=== PATIENT | female | born 1955 | race American Indian/Alaskan Native ===

== ENCOUNTER 2016-07-28 16:08 | Emergency (ER) | payer SELFPAY ==
[2016-07-28 16:44] VITALS: BP 158/97
[2016-07-28] MEDS ORDERED: TYLENOL PO ONE (21:31)
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
--- NOTE | 2016-07-28 23:19 | XRay Report ---
FINAL REPORT EXAM: XR SPINE LUMBOSACRAL 2-3V HISTORY: pain TECHNIQUE: AP, lateral and coned-down views of lumbar spine. PRIORS: None. FINDINGS: Marked disc space narrowing, endplate sclerosis and spurring in the L5-S1 level. Similar, less severe degenerative change in L1-L4 levels, with some sparing in the L4-5 level. Diffuse facet arthrosis throughout majority of lumbar spine. Very mild anterolisthesis in L4-5 level. No loss of height or other gross malalignment of lumbar vertebral bodies. No obvious osseous destruction. IMPRESSION: 1. No acute osseous abnormality. 2. Diffuse degenerative changes.
== END 2016-07-29 01:39 | disposition home or self-care (01) ==
LOC: ED 16:08
DX: S13.4XXA Sprain of ligaments of cervical spine, initial encounter (principal); S39.012A Strain of muscle, fascia and tendon of lower back, initial encounter; I10 Essential (primary) hypertension; E11.9 Type 2 diabetes mellitus without complications; Z79.4 Long term (current) use of insulin; V43.52XA Car driver injured in collision with other type car in traffic accident, initial encounter; Y93.89 Activity, other specified; Y92.89 Other specified places as the place of occurrence of the external cause; Y99.8 Other external cause status
CPT/HCPCS: 72100; 99283

== ENCOUNTER 2016-11-22 21:37 | Inpatient (IN) | payer OTHER ==
[2016-11-22] MEDS ORDERED: NACL 0.9% 1000 ML 1,000 ML ONE (22:12)
[2016-11-22] MEDS ORDERED: BABY ASPIRIN PO ONE (22:15)
--- NOTE | 2016-11-22 22:21 | Emergency Department Report ---
ED Chest Pain HPI - General Chief Complaint: Arrhythmia/Palpitations Stated Complaint: CP Time Seen by Provider: 11/22/16 22:15 Source: patient - History of Present Illness Initial Comments: 61 years old female history of SVT, diabetes, high blood pressure and hyperlipidemia presented today with palpitation started 192. Patient stated that her symptoms started all of a sudden while she was going to the bathroom associated with shortness of breath left-sided chest pain that radiated to the neck. Last similar condition was one year ago relieved with adenosine. MD Complaint: chest pain - Related Data Home Medications Medication Instructions Recorded Confirmed Last Taken Ascorbic Acid [Vitamin C] 1,000 mg PO QDAY 05/13/13 03/19/16 05/12/13 unsure dose but OTC Ferrous Sulfate [Iron Supplement 1 mg PO QDAY 05/13/13 03/19/16 05/12/13 325 Mg tab] Lisinopril [Zestril TAB] 40 mg PO QDAY 05/13/13 03/19/16 05/12/13 Multivitamin Tab W-MINERAL 1 tab PO QDAY 05/13/13 03/19/16 05/12/13 [Multiple Vitamin/Mineral (Theragran M)] Lovastatin [Altoprev] 20 mg PO QPM 03/19/16 03/19/16 Unknown amLODIPine [Norvasc] 5 mg PO DAILY 03/19/16 03/19/16 Unknown metFORMIN [Glucophage] 1,000 mg PO BID 03/19/16 03/19/16 Unknown Previous Rx's Medication Instructions Recorded Last Taken Type Insulin Aspart Prot/Aspart(Nf) 30 units SUB-Q BIDDIAB #1 units 04/24/14 Unknown Rx [NovoLOG Mix 70/30 VIAL] Metoprolol [Lopressor TAB] 25 mg PO BID #60 tablet 04/24/14 Unknown Rx hydrALAZINE [Apresoline TAB] 25 mg PO Q8HR #90 tablet 04/24/14 Unknown Rx Acetaminophen [Acetaminophen TAB] 650 mg PO Q6HR PRN 5 Days 07/28/16 Unknown Rx Cyclobenzaprine HCl [Flexeril 5 MG 5 mg PO TID 5 Days 07/28/16 Unknown Rx TAB] Allergies Allergy/AdvReac Type Severity Reaction Status Date / Time naproxen [From Naprosyn] Allergy Hives Verified 08/26/17 22:40 Heart Score - HEART Score History: Moderately suspicious EKG: Non-specific Age: 45-65 Risk factors: > 3 risk factors or hx of atherosclerotic disease Troponin: < normal limit HEART Score: 5 - Critical Actions Critical Actions: 4-6 pts:12-16.6% risk of adverse cardiac event. Should be admitted ED Review of Systems ROS: Stated complaint: CP Other details as noted in HPI Comment: All other systems reviewed and negative Constitutional: denies: chills, fever Respiratory: shortness of breath, SOB at rest. denies: cough, orthopnea, SOB with exertion, stridor, wheezing, other Cardiovascular: chest pain, palpitations, dyspnea on exertion Gastrointestinal: denies: nausea, vomiting, diarrhea, constipation, hematemesis , melena, hematochezia Neurological: denies: headache, weakness, numbness ED Past Medical Hx - Past Medical History Hx Hypertension: Yes Hx CVA: No Hx Heart Attack/AMI: No Hx Congestive Heart Failure: No Hx Diabetes: Yes Hx Deep Vein Thrombosis: No Hx Pulmonary Embolism: No Hx GERD: No Hx Liver Disease: No Hx Renal Disease: No Hx Sickle Cell Disease: No Hx Arthritis: No Hx Headaches / Migraines: No Hx Seizures: No Hx Kidney Stones: No Hx Psychiatric Treatment: No Hx Asthma: No Hx COPD: No Hx Tuberculosis: No Hx Dementia: No - Surgical History Additional Surgical History: tubal ligation and foot sugery - Social History Smoking Status: Never Smoker Substance Use Type: None - Medications Home Medications: Home Medications Medication Instructions Recorded Confirmed Last Taken Type Ascorbic Acid [Vitamin C] 1,000 mg PO QDAY 05/13/13 03/19/16 05/12/13 History unsure dose but OTC Ferrous Sulfate [Iron Supplement 1 mg PO QDAY 05/13/13 03/19/16 05/12/13 History 325 Mg tab] Lisinopril [Zestril TAB] 40 mg PO QDAY 05/13/13 03/19/16 05/12/13 History Multivitamin Tab W-MINERAL 1 tab PO QDAY 05/13/13 03/19/16 05/12/13 History [Multiple Vitamin/Mineral (Theragran M)] Insulin Aspart Prot/Aspart(Nf) 30 units SUB-Q BIDDIAB #1 units 04/24/14 Unknown Rx [NovoLOG Mix 70/30 VIAL] Metoprolol [Lopressor TAB] 25 mg PO BID #60 tablet 04/24/14 03/19/16 Unknown Rx hydrALAZINE [Apresoline TAB] 25 mg PO Q8HR #90 tablet 04/24/14 03/19/16 Unknown Rx Lovastatin [Altoprev] 20 mg PO QPM 03/19/16 03/19/16 Unknown History amLODIPine [Norvasc] 5 mg PO DAILY 03/19/16 03/19/16 Unknown History metFORMIN [Glucophage] 1,000 mg PO BID 03/19/16 03/19/16 Unknown History Acetaminophen [Acetaminophen TAB] 650 mg PO Q6HR PRN 5 Days 07/28/16 Unknown Rx Cyclobenzaprine HCl [Flexeril 5 MG 5 mg PO TID 5 Days 07/28/16 Unknown Rx TAB] ED Physical Exam - General Limitations: No Limitations General appearance: alert, in distress - Head Head exam: Present: atraumatic, normocephalic, normal inspection - Neck Neck exam: Present: normal inspection - Respiratory Respiratory exam: Present: normal lung sounds bilaterally. Absent: respiratory distress, wheezes, rales, rhonchi, stridor, chest wall tenderness, accessory muscle use, decreased breath sounds, prolonged expiratory - Cardiovascular Cardiovascular Exam: Present: tachycardia. Absent: bradycardia, irregular rhythm, systolic murmur, diastolic murmur, gallop - GI/Abdominal GI/Abdominal exam: Present: soft. Absent: tenderness, guarding, rebound, rigid , mass, bruit, pulsatile mass, hernia - Back Exam Back exam: Present: normal inspection. Absent: CVA tenderness (R), CVA tenderness (L) - Neurological Exam Neurological exam: Present: alert, oriented X3, CN II-XII intact - Skin Skin exam: Present: warm, normal color ED Course Vital Signs 11/22/16 22:40 Pulse Rate 140 H Respiratory 22 Rate Blood Pressure 153/103 O2 Sat by Pulse 99 Oximetry - Reevaluation(s) Reevaluation #1: 11/22/16 22:21 Patient received 6 mg of adenosine was no change in the rhythm, given 12 mg of adenosine,patient converted to sinus rhythm with a heart rate of 92. Reevaluation #2: 11/22/16 23:21 Presented the case to Dr. Janeen Kirk for admission, Dr. Kirk agreed to admit the patient to her service ED Medical Decision Making - Lab Data Result diagrams: 11/22/16 22:44 11/22/16 22:44 Critical Care Time: Yes Critical care time in (mins) excluding proc time.: 32 Critical care attestation.: If time is entered above; I have spent that time in minutes in the direct care of this critically ill patient, excluding procedure time. ED Disposition Clinical Impression: SVT (supraventricular tachycardia), Chest pain at rest Disposition: [id number] OP ADMIT IP TO THIS HOSP Is pt being admited?: Yes Condition: Stable Instructions: Chest Pain (ED) Referrals: PRIMARY CARE, [Primary Care Provider] - 3-5 Days
[2016-11-22 22:54] LABS: Basophils % (Auto) 0.2 % (0.0-1.8); Eosinophils % (Auto) 0.3 % (0.0-4.3); Mean Corpuscular HGB Conc 31 % (30-34); Mean Corpuscular Hemoglobin 26 pg (28-32); Mean Corpuscular Volume 85 fl (79-97); Platelet Count 201 K/mm3 (140-440); Red Blood Count 4.66 M/mm3 (3.65-5.03); Red Cell Distribution Width 16.4 % (13.2-15.2); White Blood Count 14.5 K/mm3 (4.5-11.0)
[2016-11-22 23:06] LABS: Hematocrit 39.8 % (30.3-42.9); Hemoglobin 12.2 gm/dl (10.1-14.3)
[2016-11-22] MEDS ORDERED: AdenoCARD 6 MG in NACL 0.9% 500 ML 500 ML IV ONE (23:14)
[2016-11-22 23:17] LABS: Alanine Aminotransferase 244 units/L (7-56); Albumin 3.7 g/dL (3.9-5); Alkaline Phosphatase 132 units/L (35-129); Anion Gap 22 mmol/L; BUN/Creatinine Ratio 15.71; Blood Urea Nitrogen 22 mg/dL (7-17); Calcium 8.9 mg/dL (8.4-10.2); Carbon Dioxide 19 mmol/L (22-30); Glucose 415 mg/dL (65-100); Potassium 4.9 mmol/L (3.6-5.0); Sodium 136 mmol/L (137-145); Total Protein 7.4 g/dL (6.3-8.2)
[2016-11-22] MEDS ORDERED: NACL 0.9% 1000 ML 1,000 ML IV ONE (23:30)
--- NOTE | 2016-11-22 23:44 | History and Physical Report ---
History of Present Illness Date of examination: 11/22/16 History of present illness: 61-year-old with a history of hypertension, diabetes, hyperlipidemia, SVT plus emergency room because while she was going to the bathroom she developed palpitations associated with chest pain. Also complaining of feeling dizzy. She took 2 of her 25 mg Lopressor, she stated that her symptoms seem to slow down after some time. In the emergency room, her heart rate was 140, she was given adenosine 6 and 12 with good results Review of systems Review Of Systems: Constitutional: no weight loss Ears, eyes, nose, mouth and throat: no nasal congestion, no nasal discharge, no sinus pressure, blurry vision, diplopia Neck: No neck pain or rigidity. Cardiovascular: no orthopnea Respiratory: No shortness of breath, cough Gastrointestinal: abdominal pain, hematochezia Genitourinary : no dysuria, frequency , hematuria Musculoskeletal: no muscle ache Integumentary: no rash, no pruritis Neurological: no parathesias, focal weakness Endocrine: no cold or heat intolerance, no polyuria or polydipsia Hematologic/Lymphatic: no easy bruising, no easy bleeding, no gland swelling Allergic/Immunologic: no urticaria, no angioedema. PAST MEDICAL HISTORY:hypertension, diabetes, hyperlipidemia, SVT PAST SURGICAL HISTORY: Bunionectomy FAMILY HISTORY: Hypertension SOCIAL HISTORY: Denies alcohol, tobacco, drugs Medications and Allergies Allergies Allergy/AdvReac Type Severity Reaction Status Date / Time naproxen [From Naprosyn] Allergy Hives Verified 11/22/16 22:40 Home Medications Medication Instructions Recorded Confirmed Last Taken Type Ascorbic Acid [Vitamin C] 1,000 mg PO QDAY 05/13/13 03/19/16 05/12/13 History unsure dose but OTC Ferrous Sulfate [Iron Supplement 1 mg PO QDAY 05/13/13 03/19/16 05/12/13 History 325 Mg tab] Lisinopril [Zestril TAB] 40 mg PO QDAY 05/13/13 03/19/16 05/12/13 History Multivitamin Tab W-MINERAL 1 tab PO QDAY 05/13/13 03/19/16 05/12/13 History [Multiple Vitamin/Mineral (Theragran M)] Insulin Aspart Prot/Aspart(Nf) 30 units SUB-Q BIDDIAB #1 units 04/24/14 Unknown Rx [NovoLOG Mix 70/30 VIAL] Metoprolol [Lopressor TAB] 25 mg PO BID #60 tablet 04/24/14 03/19/16 Unknown Rx hydrALAZINE [Apresoline TAB] 25 mg PO Q8HR #90 tablet 04/24/14 03/19/16 Unknown Rx Lovastatin [Altoprev] 20 mg PO QPM 03/19/16 03/19/16 Unknown History amLODIPine [Norvasc] 5 mg PO DAILY 03/19/16 03/19/16 Unknown History metFORMIN [Glucophage] 1,000 mg PO BID 03/19/16 03/19/16 Unknown History Acetaminophen [Acetaminophen TAB] 650 mg PO Q6HR PRN 5 Days 07/28/16 Unknown Rx Cyclobenzaprine HCl [Flexeril 5 MG 5 mg PO TID 5 Days 07/28/16 Unknown Rx TAB] Active Meds: Active Medications Sodium Chloride (Nacl 0.9% 1000 Ml) 1,000 mls @ 999 mls/hr IV BOLUS ONE Stop: 11/23/16 00:30 Last Admin: 11/22/16 22:10 Dose: 999 mls/hr Exam - Physical Exam Narrative exam: Gen. appearance: Patient lying in bed in no acute distress HEENT: Normocephalic/atraumatic, pupils equal round reactive to light, extra ocular movement intact, no scleral icterus, no JVD or thyromegaly or nodule, neck is supple, mucous membrane moist, no erythema or exudate Heart: S1-S2, regular rate and rhythm Lungs: Clear to auscultation bilateral breathing comfortable Abdomen: Positive bowel sounds, nontender, nondistended, no organomegaly Extremities: No edema, cyanosis, clubbing Neuro:: Oriented 3 , cranial nerves II-12 intact, speech, motor intact Skin: No rash, nodules, warm dry - Constitutional Vitals: Temp Pulse Resp BP Pulse Ox 140 H 22 153/103 99 11/22/16 22:40 11/22/16 22:40 11/22/16 22:40 11/22/16 22:40 Results - Labs CBC & Chem 7: 11/24/16 05:27 11/24/16 05:27 Labs: Abnormal lab results 11/22/16 11/22/16 Range/Units 22:44 22:44 WBC 14.5 H (4.5-11.0) K/mm3 MCH 26 L (28-32) pg RDW 16.4 H (13.2-15.2) % Lymph % (Auto) 12.2 L (13.4-35.0) % Hale # 0.9 H (0.0-0.8) K/mm3 Seg Neutrophils % 81.2 H (40.0-70.0) % Seg Neutrophils # 11.8 H (1.8-7.7) K/mm3 Sodium 136 L (137-145) mmol/L Carbon Dioxide 19 L (22-30) mmol/L BUN 22 H (7-17) mg/dL Creatinine 1.4 H (0.7-1.2) mg/dL Glucose 415 H (65-100) mg/dL AST 257 H (5-40) units/L ALT 244 H (7-56) units/L Alkaline Phosphatase 132 H (35-129) units/L Albumin 3.7 L (3.9-5) g/dL - Imaging and Cardiology EKG: image reviewed Chest x-ray: image reviewed Assessment and Plan Assessment Recurrent SVT Leukocytosis, stressed induced Hypertension Diabetes of 2 Hyperlipidemia Obesity Plan Admit to medicine Check cardiac enzymes, echo, consult cardiology Check fingersticks and initiate insulin sliding scale DVT prophylaxis, continue appropriate outpatient medications
--- NOTE | 2016-11-23 00:06 | XRay Report ---
FINAL REPORT EXAM: XR CHEST 1V AP HISTORY: Chest Pain TECHNIQUE: Single-view chest PRIORS: None. FINDINGS: Hazy opacity over the lung bases is thought to be related to overlying soft tissue.No focal consolidations are seen in the lungs.The cardiomediastinal silhouette is within normal limits for size and contour. No acute osseous abnormality is identified. IMPRESSION: 1. No definite radiographic evidence of acute cardiopulmonary disease.
[2016-11-23] MEDS ORDERED: BABY ASPIRIN ONE (00:37)
[2016-11-23] MEDS ORDERED: MILK OF MAGNESIA PO PRN (01:11)
[2016-11-23] MEDS ORDERED: TYLENOL PO PRN (01:11)
[2016-11-23] MEDS ORDERED: PROVENTIL IH PRN (01:11)
[2016-11-23] MEDS ORDERED: ZOFRAN IV PRN (01:11)
[2016-11-23] MEDS ORDERED: DULCOLAX PR PRN (01:11)
[2016-11-23] MEDS ORDERED: D50W (25GM) Syringe IV PRN (01:24)
[2016-11-23] MEDS: PERCOCET 5/325 PO PRN (03:42)
[2016-11-23 03:50] LABS: Creatine Kinase MB 2.2 ng/mL (0.0-4.0)
[2016-11-23 03:52] LABS: Creatine Kinase 91 units/L (30-135)
[2016-11-23] MEDS ORDERED: NON-FORMULARY (Insulin Aspart Prot/Aspart 30 UNITS) SUB-Q SCH (08:00)
[2016-11-23] MEDS: NOVOLOG SUB-Q SCH ×4 (08:58→23:17)
[2016-11-23] MEDS: GLUCOPHAGE PO SCH ×2 (08:59→19:58)
[2016-11-23] MEDS: LOPRESSOR PO SCH ×2 (09:02→21:27)
[2016-11-23] MEDS: NORVASC PO SCH (09:02)
[2016-11-23] MEDS: FEOSOL PO SCH (09:02)
[2016-11-23 09:40] LABS: Creatine Kinase MB 2.2 ng/mL (0.0-4.0)
[2016-11-23 09:42] LABS: Creatine Kinase 95 units/L (30-135)
--- NOTE | 2016-11-23 12:11 | Event Note ---
Date: 11/23/[address] michael's-please refer to his service for further cardiac consultation and management.
--- NOTE | 2016-11-23 13:38 | Progress Note ---
Assessment and Plan Recurrent SVT - will cont metoprolol and monitor with tele - will follow cardiology recommendation - obtain 2d echo Leukocytosis, stressed induced - cont to monitor, no fever, no cough Hypertension - resume home meds Diabetes of 2 - ADA diet and SSI with novolin Hyperlipidemia - cont statin Obesity - nutrition recommendation DVT prophylaxis, lovenox Subjective Date of service: 11/23/16 Interval history: Pt seen and examined c/o palpitation, HR at 130s, but she wants to go home c/o chest tightness Objective - Constitutional Vitals: Vital Signs - 12hr 11/23/16 11/23/16 11/23/16 02:03 06:21 08:05 Temperature 98.4 F 99.0 F Pulse Rate 83 94 H 92 H Respiratory 20 20 20 Rate Blood Pressure 132/80 135/73 141/81 O2 Sat by Pulse 98 96 95 Oximetry General appearance: Present: no acute distress, well-nourished - EENT Eyes: PERRL, EOM intact ENT: hearing intact, clear oral mucosa Ears: bilateral: normal - Neck Neck: supple, normal ROM - Respiratory Respiratory effort: normal Respiratory: bilateral: CTA - Breasts Breasts: normal - Cardiovascular Rhythm: other (tachycardic) Heart Sounds: Present: S1 & S2. Absent: gallop, rub Extremities: pulses intact, No edema, normal color, Full ROM - Gastrointestinal General gastrointestinal: Present: soft, non-tender, non-distended, normal bowel sounds - Genitourinary Female genitourinary: normal - Integumentary Integumentary: clear, warm, dry - Musculoskeletal Musculoskeletal: 1, strength equal bilaterally - Neurologic Neurologic: moves all extremities - Psychiatric Psychiatric: memory intact, appropriate mood/affect, intact judgment & insight - Labs CBC & Chem 7: 11/24/16 05:27 11/24/16 05:27 Labs: Abnormal lab results 11/23/16 11/23/16 Range/Units 08:14 12:56 POC Glucose 179 H 284 H (70-105)
--- NOTE | 2016-11-24 02:23 | Admit Criteria Form ---
Admission Criteria Documentation: TELEMETRY CARE Telemetry Admission Guidelines (Place 'X' for any and all applicable criteria): Admission to telemetry [A] may be indicated for ANY ONE of the following(1)(2)(3 )(4)(5): [X]I. Cardiac disease, including ANY ONE of the following (9)(10)(11)(12)(13 ): [ ]a) Postacute WV [ ]b) Low-risk patients with ST-segment elevation WV who have undergone successful percutaneous coronary intervention [ ]c) Unstable angina [ ]d) Suspected WV (until it is ruled out) [ ]e) Post cardiac surgery (first 48 to 72 hours unless complications occur) [X]f) Acute arrhythmias (including significant tachycardia or bradycardia) [B] [ ]g) Firing of an implantable cardioverter defibrillator [C] [ ]h) Suspected pacemaker or implantable cardioverter defibrillator malfunction (10) [ ]i) New administration or adjustment of an antiarrhythmic drug [D ] [ ]j) Child admitted for acute congestive heart failure [ ]j) Long QT syndrome [ ]k) Advanced heart block (eg, second-degree Mobitz type II, third- degree heart block) [ ]l) Acute myocarditis or pericarditis [ ]m) Short-term (ambulatory or inpatient) monitoring after a cardiac procedure as indicated by ANY ONE of the following [E]: [ ]i) Electrophysiologic studies [ ]ii) Percutaneous coronary intervention with stent placement [ ]iii) Pacemaker placement with cardiac conduction defect [ ]iv) Implantable cardiac defibrillator placement [ ]II. Drug overdose or poisoning with substance that causes arrhythmias or QT prolongation (eg, phenothiazines, sympathomimetic agents, cyclic antidepressants, digitalis, antiarrhythmic drugs)(15) [ ]III. Short-term (ambulatory or inpatient) monitoring after therapeutic or diagnostic procedure requiring conscious sedation or anesthesia (eg, endoscopy, elective cardioversion) [ ]IV. Acute cerebrovascular even[F](18) [ ]V. Massive blood transfusion (eg, at least 10 units of packed red blood cells in 24 hours) [ ]. Variceal bleeding after endoscopy, sclerotherapy, or IV vasopressin [ ]VII. Uncorrected electrolyte abnormalities associated with an increased risk of dangerous arrhythmia [G]; examples include [ ]a) Hyperkalemia with attributable ECG changes [ ]b) Potassium greater than 6.5 mmol/L (mEq/L) in a patient without history of chronic renal disease [ ]c) Prolonged QT attributed to hypokalemia, hypomagnesemia, or hypocalcemia [ ]VIII.Unexplained syncope or other neurologic event suspected of being due to arrhythmia due to a finding that increases risk; examples include(19)(20)(21): [ ]a) High-risk ECG findings (eg, bifascicular block, bradycardia, abnormal QT interval, ventricular pre- excitation) [ ]b) History of previous syncope due to arrhythmia [ ]c) Abnormal ventricular function (eg, reduced ejection fraction ) [ ]d) Exertional or supine syncope [ ]e) Concerning syncope characteristics (eg, sudden loss of consciousness without prodrome) [ ]f) Family history of sudden [ ]g) Use of arrhythmogenic medication [ ]h) Suspected cardiac ischemia [ ]i) Known channelopathy (eg, long QT syndrome, Brugada syndrome, or catecholaminergic paroxysmal ventricular tachycardia) [ ]j) Known structural heart disease (eg, hypertrophic cardiomyopathy , severe valvular disease) [ ]k) Palpitations preceding syncope The original [employer] content created by [employer] has been revised. The portions of the content which have been revised are identified through the use of italic text or in bold, and [employer] has neither reviewed nor approved the modified material. All other unmodified content is copyright [employer]. Please see references footnoted in the original [employer] edition 2016 Admission Criteria Met: Yes
[2016-11-24 06:01] LABS: Basophils % (Auto) 0.2 % (0.0-1.8); Eosinophils % (Auto) 1.7 % (0.0-4.3); Hemoglobin 12.3 gm/dl (10.1-14.3); Mean Corpuscular HGB Conc 32 % (30-34); Mean Corpuscular Hemoglobin 27 pg (28-32); Mean Corpuscular Volume 82 fl (79-97); Platelet Count 197 K/mm3 (140-440); Red Blood Count 4.61 M/mm3 (3.65-5.03); Red Cell Distribution Width 16.1 % (13.2-15.2); White Blood Count 9.8 K/mm3 (4.5-11.0)
[2016-11-24 06:20] LABS: Anion Gap 18 mmol/L; BUN/Creatinine Ratio 21.42; Blood Urea Nitrogen 15 mg/dL (7-17); Calcium 9.2 mg/dL (8.4-10.2); Carbon Dioxide 25 mmol/L (22-30); Chloride 101.4 mmol/L (98-107); Glucose 128 mg/dL (65-100); Potassium 4.1 mmol/L (3.6-5.0); Sodium 140 mmol/L (137-145)
[2016-11-24] MEDS: NOVOLOG SUB-Q SCH ×4 (07:40→21:48)
--- NOTE | 2016-11-24 09:43 | Consultation ---
History of Present Illness Consult date: 11/24/16 Requesting physician: LEMUEL MEZA Consult reason: other (SVT) History of present illness: The pt is a 61 year old female with a past medical history significant for HTN, HLP, DM, SVT, tobacco use, & obesity. She has been seen by our practice on prior hospitalization but has been noncompliant with OP follow up. She presented with c/o palpitations which began Thursday evening at 7:20PM. 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 The palpitations were associated with midsternal , nonexertional, nonradiating chest tightness. She denies any SOB, n/v, diaphoresis, dizziness or syncope. She states that she has experienced approximately one episode of palpitations per year since being diagnosed with SVT in 2013, and that she can usually convert herself out of SVT via vagal maneuvers. She attempted vagal maneuvers on Thursday evening but continued to have palpitations and EMS was called. Admission EKG showed SVT, HR 143. Pt was reportedly given IV adenosine, 6mg then 12mg, and was successfully converted to SR/ST. On evaluation, pt denies any complaints. Pt reports that she does not have health insurance and thus has been unable to follow up with a lime mixer. She states that she receives prescription medications from a free clinic through her muslim. She reports compliance with her medications, which include lopressor 25mg PO BID, amlodipine, lisinopril, and hydralazine. Of note, LHC 04/2013 showed normal coronaries, EF 70%. Echo done 03/2014 showed EF 50 - 55%, moderate LVH, mild MR, mild TR. Past History Past Medical History: diabetes, hypertension, hyperlipidemia, other (SVT) Past Surgical History: No surgical history Social history: , lives with family, smoking. denies: alcohol abuse, prescription drug abuse Medications and Allergies Allergies Allergy/AdvReac Type Severity Reaction Status Date / Time naproxen [From Naprosyn] Allergy Hives Verified 11/22/16 22:40 Home Medications Medication Instructions Recorded Confirmed Last Taken Type RX: Ascorbic Acid [Vitamin C] 1,000 mg PO QDAY 05/13/13 03/19/16 05/12/13 History unsure dose but OTC RX: Ferrous Sulfate [Iron 1 mg PO QDAY 05/13/13 03/19/16 05/12/13 History Supplement 325 Mg tab] RX: Lisinopril [Zestril TAB] 40 mg PO QDAY 05/13/13 03/19/16 05/12/13 History RX: Multivitamin Tab W-MINERAL 1 tab PO QDAY 05/13/13 03/19/16 05/12/13 History [Multiple Vitamin/Mineral (Theragran M)] RX: Insulin Aspart Prot/Aspart(Nf) 30 units SUB-Q BIDDIAB #1 units 04/24/14 Unknown Rx [NovoLOG Mix 70/30 VIAL] RX: Metoprolol [Lopressor TAB] 25 mg PO BID #60 tablet 04/24/14 03/19/16 Unknown Rx RX: hydrALAZINE [Apresoline TAB] 25 mg PO Q8HR #90 tablet 04/24/14 03/19/16 Unknown Rx Lovastatin [Altoprev] 20 mg PO QPM 03/19/16 03/19/16 Unknown History RX: metFORMIN [Glucophage] 1,000 mg PO BID 03/19/16 03/19/16 Unknown History amLODIPine [Norvasc] 5 mg PO DAILY 03/19/16 03/19/16 Unknown History Cyclobenzaprine HCl [Flexeril 5 MG 5 mg PO TID 5 Days 07/28/16 Unknown Rx TAB] RX: Acetaminophen [Acetaminophen 650 mg PO Q6HR PRN 5 Days 07/28/16 Unknown Rx TAB] Active Meds: Active Medications Acetaminophen (Tylenol) 650 mg PO Q4H PRN PRN Reason: Pain MILD(1-3)/Fever >100.5/PRINCE Albuterol (Proventil) 2.5 mg IH Q4HRT PRN PRN Reason: Shortness Of Breath Amlodipine Besylate (Norvasc) 5 mg PO DAILY [facility] Last Admin: 11/23/16 09:02 Dose: 5 mg Bisacodyl (Dulcolax) 10 mg [place] QDAY PRN PRN Reason: Constipation unrelieved by MOM Dextrose (D50w (25gm) Syringe) 50 ml IV PRN PRN PRN Reason: Hypoglycemia Ferrous Sulfate (Feosol) 325 mg PO QDAY [facility] Last Admin: 11/23/16 09:02 Dose: 325 mg Insulin Aspart (Novolog) 0 units SUB-Q ACHS [facility] PRN Reason: Protocol Last Admin: 11/23/16 23:17 Dose: 6 units Insulin Human Isoph/Insulin Regular (Novolin 70/30) 30 unit SUB-Q BIDDIAB [facility] Last Admin: 11/23/16 19:58 Dose: 30 unit Magnesium Hydroxide (Milk Of Magnesia) 30 ml PO Q4H PRN PRN Reason: Constipation Metformin HCl (Glucophage) 1,000 mg PO BIDDIAB [facility] Last Admin: 11/23/16 19:58 Dose: 1,000 mg Metoprolol Tartrate (Lopressor) 50 mg PO BID [facility] Ondansetron HCl (Zofran) 4 mg IV Q8H PRN PRN Reason: N/V unrelieved by Reglan Oxycodone/Acetaminophen (Percocet 5/325) 1 tab PO Q6H PRN PRN Reason: Pain, Moderate (4-6) Last Admin: 11/23/16 03:42 Dose: 1 tab Review of Systems Constitutional: no weight loss, no weight gain, no fever, no chills, no sweats Ears, nose, mouth and throat: no ear pain, no nose pain, no sinus pressure, no sinus pain Cardiovascular: chest pain, palpitations, rapid/irregular heart beat, high blood pressure, no orthopnea, no edema, no syncope, no lightheadedness, no shortness of breath, no dyspnea on exertion, no paroxysmal nocturnal dyspnea, no leg edema, no decreased exercise tolerance Respiratory: no cough, no shortness of breath, no dyspnea on exertion, no congestion, no wheezing, no pain on inspiration Gastrointestinal: no abdominal pain, no nausea, no vomiting, no diarrhea, no constipation, no change in bowel habits Genitourinary Female: no pelvic pain, no flank pain, no dysuria, no urinary frequency, no urgency Musculoskeletal: no neck stiffness, no neck pain, no shooting arm pain, no arm numbness/tingling, no low back pain, no shooting leg pain, no leg numbness/ tingling, no redness of joints Integumentary: no rash, no pruritis, no redness, no sores, no wounds Neurological: no head injury, no paralysis, no weakness, no parathesias, no numbness, no tingling, no seizures, no syncope Psychiatric: no anxiety Hematologic/Lymphatic: no easy bruising, no easy bleeding, no lymphadenopathy Allergic/Immunologic: no urticaria, no wheezing, no persistent infections Physical Examination Vital Signs Pulse Resp 140 H 14 11/22/16 22:00 11/22/16 22:00 General appearance: no acute distress HEENT: Positive: PERRL, Normocephaly, Mucus Membranes Moist Neck: Positive: neck supple, trachea midline Cardiac: Positive: Reg Rate and Rhythm, S1/S2 Lungs: Positive: Normal Exam, clear to auscultation, Normal Breath Sounds Neuro: Positive: Grossly Intact, Cranial Nerve 2-12 Intact Abdomen: Positive: Unremarkable, Soft, Active Bowel Sounds. Negative: Tender Skin: Positive: Clear. Negative: Rash, Wound Musculoskeletal: No Fluid Collection, No Pain, Normal Range of Motion Extremities: Absent: edema Results 11/24/16 05:27 11/24/16 05:27 CBC 11/24/16 Range/Units 05:27 WBC 9.8 (4.5-11.0) K/mm3 RBC 4.61 (3.65-5.03) M/mm3 Hgb 12.3 (10.1-14.3) gm/dl Hct 38.0 (30.3-42.9) % Plt Count 197 (140-440) K/mm3 Lymph # 2.5 (1.2-5.4) K/mm3 [place] # 0.6 (0.0-0.8) K/mm3 Eos # 0.2 (0.0-0.4) K/mm3 Baso # 0.0 (0.0-0.1) K/mm3 Comprehensive Metabolic Panel 11/24/16 Range/Units 05:27 Sodium 140 (137-145) mmol/L Potassium 4.1 (3.6-5.0) mmol/L Chloride 101.4 (98-107) mmol/L Carbon Dioxide 25 (22-30) mmol/L BUN 15 (7-17) mg/dL Creatinine 0.7 (0.7-1.2) mg/dL Glucose 128 H (65-100) mg/dL Calcium 9.2 (8.4-10.2) mg/dL - Imaging and Cardiology Echo: pending, report reviewed (03/2014 showed EF 50 - 55%, moderate LVH, mild MR , mild TR. ) Cardiac cath: report reviewed (04/2013: normal coronaries, EF 70%) EKG: image reviewed EKG interpretations - Telemetry EKG Rhythm: Sinus Tachycardia Additional Comments: SVT Assessment and Plan Assessment: Paroxysmal SVT --> SR/ST Chest pain, atypical - in setting of SVT; currently resolved; ECG with no ischemic changes; Tamica negative for AMI. HTN HLP DM Obesity Plan: Await echo. Obtain serum Mg. Cont present cardiac management, including lopressor 50mg PO BID. Assessment and plan reviewed with pt at bedside. The patient has been seen in conjunction with Dr. Maldonado who agrees with the assessment and plan of care.
[2016-11-24] MEDS: LOPRESSOR PO SCH ×2 (09:57→21:41)
[2016-11-24] MEDS: FEOSOL PO SCH (09:58)
[2016-11-24] MEDS: GLUCOPHAGE PO SCH ×2 (09:58→18:48)
[2016-11-24] MEDS: NORVASC PO SCH (09:58)
[2016-11-24] MEDS ORDERED: MAGNESIUM SULFATE 1 GM in NACL 0.9% 50 ML IV ONE (15:00)
--- NOTE | 2016-11-24 17:47 | Progress Note ---
Assessment and Plan Recurrent SVT - will cont metoprolol and monitor with tele - increased the dose of metoprolol - will follow cardiology recommendation - 2d echo showed preserved EF Leukocytosis, stressed induced - cont to monitor, no fever, no cough Hypertension - resume home meds Diabetes of 2 - ADA diet and SSI with novolin - BG >400s, will increase the dose of novolin Hyperlipidemia - cont statin Obesity - nutrition recommendation DVT prophylaxis, lovenox Brief history: 61-year-old with a history of hypertension, diabetes, hyperlipidemia, SVT plus emergency room because while she was going to the bathroom she developed palpitations associated with chest pain. Also complaining of feeling dizzy. She took 2 of her 25 mg Lopressor, she stated that her symptoms seem to slow down after some time. In the emergency room, her heart rate was 140, she was given adenosine 6 and 12 with good results. Subjective Date of service: 11/24/16 Interval history: Pt seen and examined c/o palpitation, HR better controlled today, but she wants to go home c/o chest tightness Objective - Constitutional Vitals: Vital Signs - 12hr 11/24/16 11/24/16 11/24/16 07:00 09:49 12:00 Temperature 98.1 F 98.5 F Pulse Rate 108 H 100 H Respiratory 20 20 Rate Blood Pressure 132/94 131/78 O2 Sat by Pulse 95 95 97 Oximetry 11/24/16 17:00 Temperature 98.0 F Pulse Rate 107 H Respiratory 20 Rate Blood Pressure 122/63 O2 Sat by Pulse 99 Oximetry General appearance: Present: no acute distress, well-nourished - EENT Eyes: PERRL, EOM intact ENT: hearing intact, clear oral mucosa Ears: bilateral: normal - Neck Neck: supple, normal ROM - Respiratory Respiratory effort: normal Respiratory: bilateral: CTA - Cardiovascular Heart Sounds: Present: S1 & S2 (tachycardic). Absent: gallop, rub Extremities: pulses intact, No edema, normal color, Full ROM - Gastrointestinal General gastrointestinal: Present: soft, non-tender, non-distended, normal bowel sounds - Integumentary Integumentary: clear, warm, dry - Musculoskeletal Musculoskeletal: 1, strength equal bilaterally - Neurologic Neurologic: moves all extremities - Psychiatric Psychiatric: memory intact, appropriate mood/affect, intact judgment & insight - Labs CBC & Chem 7: 11/24/16 05:27 11/24/16 05:27 Labs: Abnormal lab results 11/23/16 11/23/16 11/24/16 Range/Units 18:12 21:49 05:27 MCH 27 L (28-32) pg RDW 16.1 H (13.2-15.2) % Glucose (65-100) mg/dL POC Glucose 262 H 256 H (70-105) Magnesium (1.7-2.3) mg/dL 11/24/16 11/24/16 11/24/16 Range/Units 05:27 05:27 08:01 MCH (28-32) pg RDW (13.2-15.2) % Glucose 128 H (65-100) mg/dL POC Glucose 185 H (70-105) Magnesium 1.60 L (1.7-2.3) mg/dL 11/24/16 Range/Units 11:50 MCH (28-32) pg RDW (13.2-15.2) % Glucose (65-100) mg/dL POC Glucose 413 H (70-105) Magnesium (1.7-2.3) mg/dL - Imaging and cardiology Chest x-ray: report reviewed
[2016-11-24] MEDS: PERCOCET 5/325 PO PRN (21:41)
[2016-11-25 05:56] LABS: Anion Gap 19 mmol/L; BUN/Creatinine Ratio 23.33; Blood Urea Nitrogen 14 mg/dL (7-17); Calcium 9.2 mg/dL (8.4-10.2); Carbon Dioxide 24 mmol/L (22-30); Chloride 98.8 mmol/L (98-107); Glucose 155 mg/dL (65-100); Potassium 4.3 mmol/L (3.6-5.0); Sodium 137 mmol/L (137-145)
[2016-11-25 08:47] VITALS: BP 170/94
[2016-11-25] MEDS: NOVOLOG SUB-Q SCH ×2 (09:03→12:25)
[2016-11-25] MEDS: FEOSOL PO SCH ×2 (09:04→09:07)
[2016-11-25] MEDS: GLUCOPHAGE PO SCH (09:05)
[2016-11-25] MEDS: NORVASC PO SCH (09:05)
[2016-11-25] MEDS: LOPRESSOR PO SCH (09:06)
--- NOTE | 2016-11-25 10:12 | Discharge Summary ---
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 Also complaining of feeling dizzy. She took 2 of her 25 mg Lopressor, she stated that her symptoms seem to slow down after some time. In the emergency room, her heart rate was 140, she was given adenosine 6 and 12 with good results. Patient was admitted to the floor and cardiology was consulted, her initial symptom was increased from 20 mg to 50 mg by mouth 3 times a day. Patient has a blood pressure and was started on medications. Echo was done and showed ejection fraction of 55-60%, no thrombus. Patient was hemodynamically stable at time of discharge. We have advised the patient to follow-up with cardiology as an outpatient but she refused because she doesn't have insurance. I refilled her home medications and discharged home. Disposition: - TO HOME OR SELFCARE Time spent for discharge: 31 minutes - Discharge Diagnoses (1) Chest pain at rest Status: Acute (2) SVT (supraventricular tachycardia) Status: Acute Core Measure Documentation - Palliative Care Palliative Care/ Comfort Measures: Not Applicable - Core Measures Any of the following diagnoses?: none Exam - Physical Exam Narrative exam: Not in cardiopulmonary distress. The patient appeared well nourished and normally developed. Vital signs as documented. Head exam is unremarkable. No scleral icterus . Neck is without jugular venous distension, thyromegaly, or carotid bruits. Lungs are clear to auscultation. Cardiac exam reveals regular rate and Rhythm. First and second heart sounds normal. No murmurs, rubs or gallops. Abdominal exam reveals normal bowel sounds, no masses, no organomegaly and no aortic enlargement. Extremities are nonedematous and both femoral and pedal pulses are normal. STAGE DRIVER: Alert and oriented 3. No focal weakness. - Constitutional Vitals: Temp Pulse Resp BP Pulse Ox 98.8 F 124 H 20 170/94 94 11/25/16 08:46 11/25/16 09:06 11/25/16 08:46 11/25/16 09:06 11/25/16 08:46 Plan Activity: no restrictions Weight Bearing Status: Full Weight Bearing Diet: low cholesterol, low salt, diabetic Follow up with: PRIMARY CARE,MD [Primary Care Provider] - 3-5 Days [facility] [Provider Group] - 14 Days Prescriptions: Cyclobenzaprine HCl [Flexeril 5 MG TAB] 5 mg PO TID 5 Days Insulin Aspart Prot/Aspart(Nf) [NovoLOG Mix 70/30 VIAL] 30 units SUB-Q BIDDIAB # 1 units Lisinopril [Zestril TAB] 40 mg PO QDAY #30 tablet Lovastatin [Altoprev] 20 mg PO QPM #30 tab.er.24h metFORMIN [Glucophage] 1,000 mg PO BID #60 tablet Metoprolol [Lopressor TAB] 50 mg PO TID #180 tablet Multivitamin Tab W-MINERAL [Multiple Vitamin/Mineral (Theragran M)] 1 tab PO QDAY #30 tablet
--- NOTE | 2016-11-25 11:47 | Progress Note ---
Assessment and Plan Assessment: Paroxysmal SVT --> SR/ST Chest pain, atypical - in setting of SVT; currently resolved; ECG with no ischemic changes; Tamica negative for AMI. Hypomag HTN HLP DM Obesity Plan: Echo reviewed - mild LVH, EF 55-60%. Increase lopressor to 50mg PO TID. Recommend repletion of magnesium PRN to maintain serum Mg ~2. Assessment and plan reviewed with pt at bedside. The patient has been seen in conjunction with Dr. Soni who agrees with the assessment and plan of care. Subjective Date of service: 11/25/16 Principal diagnosis: SVT Interval history: Pt resting comfortably in bed, denies any complaints. States she is ready to go home. In ST on telemetry with HR 110 - 130s, no arrhythmias noted overnight. BPs elevated this AM. Objective Last Vital Signs Temp 98.8 F 11/25/16 08:46 Pulse 122 H 11/25/16 10:38 Resp 20 11/25/16 08:46 BP 170/94 11/25/16 09:06 Pulse Ox 94 11/25/16 08:46 - Physical Examination General: Appears Well HEENT: Positive: PERRL, Normocephaly, Mucus Membranes Moist Neck: Positive: neck supple, trachea midline Cardiac: Positive: Regular Rhythm, S1/S2, Tachycardia Lungs: Positive: clear to auscultation Neuro: Positive: Grossly Intact, Cranial Nerve 2-12 Intact Abdomen: Positive: Unremarkable, Soft, Active Bowel Sounds. Negative: Tender Skin: Positive: Clear. Negative: Rash, Wound Musculoskeletal: No Fluid Collection, No Pain, Normal Range of Motion Extremities: Absent: edema - Labs and Meds Comprehensive Metabolic Panel 11/25/16 Range/Units 05:17 Sodium 137 (137-145) mmol/L Potassium 4.3 (3.6-5.0) mmol/L Chloride 98.8 (98-107) mmol/L Carbon Dioxide 24 (22-30) mmol/L BUN 14 (7-17) mg/dL Creatinine 0.6 L (0.7-1.2) mg/dL Glucose 155 H (65-100) mg/dL Calcium 9.2 (8.4-10.2) mg/dL - Imaging and Cardiology EKG: image reviewed Echo: report reviewed (03/2014 showed EF 50 - 55%, moderate LVH, mild MR, mild TR. ) Cardiac cath: report reviewed (04/2013: normal coronaries, EF 70%) - Telemetry EKG Rhythm: Sinus Tachycardia
[2016-11-25] MEDS ORDERED: LOPRESSOR PO SCH (14:00)
== END 2016-11-25 12:38 | disposition home or self-care (01) | DRG 309 ==
LOC: ED 21:37 → 4A 23:46
PROVIDERS: ADMIT Internal Medicine; ATTEND Internal Medicine
DX: I47.1 Supraventricular tachycardia (principal); E11.9 Type 2 diabetes mellitus without complications; E78.5 Hyperlipidemia, unspecified; E66.9 Obesity, unspecified; E83.42 Hypomagnesemia; Z68.41 Body mass index [BMI] 40.0-44.9, adult; Z98.51 Tubal ligation status; Z82.49 Family history of ischemic heart disease and other diseases of the circulatory system; Z88.8 Allergy status to other drugs, medicaments and biological substances
CPT/HCPCS: 36415; 71010; 80048; 80053; 82550; 82553; 82962; 83735; 84443; 84484; 85025; 93005; 93010; 93306; 96361; 96374; J0153; J1815; J3475; J7030

== ENCOUNTER 2020-04-01 16:46 | Inpatient (IN) | payer SELFPAY ==
--- NOTE | 2020-04-01 16:58 | Event Note ---
ED Screening Note Date of service: 04/01/20 Time: 16:56 ED Screening Note: Patient complains of shortness of breath, cough, and congestion History of kidney disease and diabetes This initial assessment/diagnostic orders/clinical plan/treatment(s) is/are subject to change based on patients health status, clinical progression and re- assessment by fellow clinical providers in the ED. Further treatment and workup at subsequent clinical providers discretion. Patient/guardian urged not to elope from the ED as their condition may be serious if not clinically assessed and managed. Initial orders include: Labs Chest x-ray EKG
--- NOTE | 2020-04-01 17:25 | XRay Report ---
CHEST PA AND LATERAL VIEWS INDICATION: SOB. COMPARISON: 11/22/2016 FINDINGS: Support devices: None Heart: Normal Lungs/Pleura: No acute pulmonary or pleural findings. IMPRESSION: 1. No active disease. Signer Name: Anton Lee MD Signed: 04/01/2020 5:21 PM Workstation Name: [id number]
[2020-04-01 17:56] LABS: Basophils % (Auto) 0.3 % (0.0-1.8); Eosinophils % (Auto) 0.2 % (0.0-4.3); Hematocrit 36.4 % (30.3-42.9); Hemoglobin 11.5 gm/dl (10.1-14.3); Lymphocytes # (Auto) 1.3 K/mm3 (1.2-5.4); Lymphocytes % (Auto) 21.7 % (13.4-35.0); Mean Corpuscular HGB Conc 32 % (30-34); Mean Corpuscular Volume 79 fl (79-97); Monocytes # (Auto) 0.8 K/mm3 (0.0-0.8); Monocytes % (Auto) 12.7 % (0.0-7.3); Platelet Count 225 K/mm3 (140-440); Red Cell Distribution Width 17.7 % (13.2-15.2)
[2020-04-01 17:58] LABS: Alanine Aminotransferase 51 units/L (7-56); BUN/Creatinine Ratio 14; Blood Urea Nitrogen 19 mg/dL (7-17); Calcium 9.1 mg/dL (8.4-10.2); Hemolysis Index 2
[2020-04-01] MEDS ORDERED: SODIUM CHLORIDE 0.9% 1000 ML 1,000 ML IV ONE (21:46)
[2020-04-01] MEDS ORDERED: AZITHROMYCIN 500 MG in SODIUM CHLORIDE 0.9% 250ML 250 ML IV ONE (21:49)
[2020-04-01] MEDS ORDERED: cefTRIAXone/NS 1 GM/50 ML 1 GM/50 ML BAG IV ONE (21:49)
--- NOTE | 2020-04-01 21:52 | Emergency Department Report ---
HPI - General Chief Complaint: Dyspnea/Respdistress PUI?: Yes Time Seen by Provider: 04/01/20 16:55 - HPI HPI: Room 37 The patient is a 50-year-old female present with a chief complaint of shortness of breath and cough. The patient states for the past week she has had a cough productive of sputum but is uncertain of the color. The patient also complains of shortness of breath but states she has been feeling short of breath for the past 3 years. Patient denies any history of fever or known contact with Covid positive patient. Patient complains of left hip pain from sleeping on her left side. ED Past Medical Hx - Past Medical History Previous Medical History?: Yes Hx Hypertension: Yes Hx Diabetes: Yes Hx Arthritis: Yes - Surgical History Past Surgical History?: Yes Additional Surgical History: tubal ligation and foot sugery - Family History Family history: no significant - Social History Smoking Status: Former Smoker (None x5 years) Substance Use Type: None (Denies illicit drug use) - Medications Home Medications: Home Medications Medication Instructions Recorded Confirmed Last Taken Type Ascorbic Acid [Vitamin C] 1,000 mg PO QDAY 05/13/13 11/24/16 1 Day Ago History ~11/23/16 Ferrous Sulfate [Iron Supplement 1 mg PO QDAY 05/13/13 11/24/16 1 Day Ago History 325 Mg tab] ~11/23/16 amLODIPine [Norvasc] 5 mg PO DAILY 03/19/16 11/24/16 1 Day Ago History ~11/23/16 Acetaminophen [Acetaminophen TAB] 650 mg PO Q6HR PRN 5 Days tablet 07/28/16 11/24/16 1 Day Ago Rx ~11/23/16 Cyclobenzaprine HCl [Flexeril 5 MG 5 mg PO TID 5 Days tab 11/25/16 Unknown Rx TAB] Insulin Aspart Prot/Aspart(Nf) 30 units SUB-Q BIDDIAB #1 units 11/25/16 Unknown Rx [NovoLOG Mix 70/30 VIAL] Lovastatin [Altoprev] 20 mg PO QPM #30 tab.er.24h 11/25/16 Unknown Rx Metoprolol [Lopressor TAB] 50 mg PO TID #180 tablet 11/25/16 Unknown Rx Multivitamin Tab W-MINERAL 1 tab PO QDAY #30 tablet 11/25/16 Unknown Rx [Multiple Vitamin/Mineral (Theragran M)] lisinopriL [Zestril TAB] 40 mg PO QDAY #30 tablet 11/25/16 Unknown Rx metFORMIN [Glucophage] 1,000 mg PO BID #60 tablet 11/25/16 Unknown Rx ED Review of Systems ROS: Stated complaint: SOB Other details as noted in HPI Constitutional: denies: fever Eyes: denies: eye pain ENT: denies: throat pain Respiratory: cough, shortness of breath Cardiovascular: denies: chest pain Endocrine: no symptoms reported Gastrointestinal: denies: abdominal pain Genitourinary: denies: dysuria Musculoskeletal: arthralgia, myalgia Neurological: denies: headache Physical Exam - Physical Exam Vital Signs: Vital Signs 04/01/20 16:51 Temperature 97.8 F Pulse Rate 106 H Respiratory 20 Rate Blood Pressure 95/60 O2 Sat by Pulse 93 Oximetry Physical Exam: GENERAL: The patient is well-developed well-nourished female lying on stretcher stating she feels too weak to pull the covers over herself. [] HEENT: Normocephalic. Atraumatic. Extraocular motions are intact. Patient has moist mucous membranes. NECK: Supple. Trachea midline CHEST/LUNGS: Pursed lips respirations. Diminished throughout. HEART/CARDIOVASCULAR: Regular. There is tachycardia. There is no gallop rub or murmur. ABDOMEN: Abdomen is soft, nontender. Patient has normal bowel sounds. There is no abdominal distention. SKIN: There is no rash. There is no diaphoresis. NEURO: The patient is awake, alert, and oriented. The patient is cooperative. The patient has normal speech MUSCULOSKELETAL: There is no evidence of acute injury. ED Course Vital Signs 04/01/20 16:51 Temperature 97.8 F Pulse Rate 106 H Respiratory 20 Rate Blood Pressure 95/60 O2 Sat by Pulse 93 Oximetry ED Medical Decision Making - Lab Data Result diagrams: 04/01/20 16:59 04/01/20 16:59 - Differential Diagnosis Pneumonia, COVID-19, URI, Critical care attestation.: If time is entered above; I have spent that time in minutes in the direct care of this critically ill patient, excluding procedure time. ED Disposition Clinical Impression: Productive cough, Hypoxia, Malaise Disposition: -09 OP ADMIT IP TO THIS HOSP Is pt being admited?: Yes Does the pt Need Aspirin: Yes Condition: Fair Referrals: PRIMARY CARE,MD [Primary Care Provider] - 3-5 Days Time of Disposition: 21:54 (Hospitalist paged (Dr Medley))
[2020-04-01] MEDS ORDERED: MAGNESIUM HYDROXIDE (MOM) ORAL LIQD UDC PO PRN (22:32)
[2020-04-01] MEDS ORDERED: ONDANSETRON 4 MG/2 ML INJ IV PRN (22:32)
[2020-04-01] MEDS ORDERED: DEXTROSE 50% IN WATER (25GM) 50 ML SYRINGE IV PRN (22:32)
--- NOTE | 2020-04-01 22:46 | History and Physical Report ---
History of Present Illness Date of examination: 04/01/20 Date of admission: 04/01/2020 Chief complaint: Shortness of breath Cough Generalized malaise History of present illness: 64 year old female seen in the Emergency room today complaining cough and shortness of breath. Cough has been productive of some sputum. She has been having generalized malaise. This has been ongoing for a few weeks. She denies any fever or chills, chest pain, no headache or dizziness, no nausea or vomiting, no abdominal pain,no dysuria, no hematuria. Patient denies any sick contacts, no no recent travels, no contact with anyone with COVID-19. Work up in the emergency room today, labs and CXR were unremarkable. Patient admitted with dyspnea and hypoxia. Will R/O COVID-19. Past History Past Medical History: diabetes, hypertension, hyperlipidemia Past Surgical History: Other (Tubal ligation, foot surgery) Social history: no significant social history Family history: hypertension Medications and Allergies Allergies Allergy/AdvReac Type Severity Reaction Status Date / Time naproxen [From Naprosyn] Allergy Hives Verified 11/22/16 22:40 Home Medications Medication Instructions Recorded Confirmed Last Taken Type Ascorbic Acid [Vitamin C] 1,000 mg PO QDAY 05/13/13 11/24/16 1 Day Ago History ~11/23/16 Ferrous Sulfate [Iron Supplement 1 mg PO QDAY 05/13/13 11/24/16 1 Day Ago History 325 Mg tab] ~11/23/16 amLODIPine [Norvasc] 5 mg PO DAILY 03/19/16 11/24/16 1 Day Ago History ~11/23/16 Acetaminophen [Acetaminophen TAB] 650 mg PO Q6HR PRN 5 Days tablet 07/28/16 11/24/16 1 Day Ago Rx ~11/23/16 Cyclobenzaprine HCl [Flexeril 5 MG 5 mg PO TID 5 Days tab 11/25/16 Unknown Rx TAB] Insulin Aspart Prot/Aspart(Nf) 30 units SUB-Q BIDDIAB #1 units 11/25/16 Unknown Rx [NovoLOG Mix 70/30 VIAL] Lovastatin [Altoprev] 20 mg PO QPM #30 tab.er.24h 11/25/16 Unknown Rx Metoprolol [Lopressor TAB] 50 mg PO TID #180 tablet 11/25/16 Unknown Rx Multivitamin Tab W-MINERAL 1 tab PO QDAY #30 tablet 11/25/16 Unknown Rx [Multiple Vitamin/Mineral (Theragran M)] lisinopriL [Zestril TAB] 40 mg PO QDAY #30 tablet 11/25/16 Unknown Rx metFORMIN [Glucophage] 1,000 mg PO BID #60 tablet 11/25/16 Unknown Rx Active Meds: Active Medications Acetaminophen (Acetaminophen 325 Mg Tab) 650 mg PO Q4H PRN PRN Reason: Pain MILD(1-3)/Fever >100.5/PRINCE Dextrose (Dextrose 50% In Water (25gm) 50 Ml Syringe) 50 ml IV Q30MIN PRN; Protocol PRN Reason: Hypoglycemia Dextrose (Dextrose 50% In Water (25gm) 50 Ml Syringe) 50 ml IV Q30MIN PRN; Protocol PRN Reason: Hypoglycemia Sodium Chloride (Nacl 0.9% 1000 Ml) 1,000 mls @ 999 mls/hr IV ONCE ONE Stop: 04/01/20 22:46 Last Admin: 04/01/20 22:11 Dose: 999 mls/hr Documented by: Azithromycin 500 mg/ Sodium (Chloride) 250 mls @ 250 mls/hr IV ONCE ONE; Protocol Stop: 04/01/20 22:48 Last Admin: 04/01/20 22:10 Dose: 250 mls/hr Documented by: Sodium Chloride (Nacl 0.9% 1000 Ml) 1,000 mls @ 75 mls/hr IV DIRECT SAEED Ceftriaxone Sodium (Rocephin/Ns 2 Gm/100 Ml) 2 gm in 100 mls @ 200 mls/hr IV Q24H SAEED; Protocol Azithromycin 500 mg/ Sodium (Chloride) 250 mls @ 250 mls/hr IV Q24H SAEED; Protocol Insulin Human Lispro (Insulin Lispro 100 Unit/Ml Vial 3 Ml) 0 unit SUB-Q ACHS SAEED; Protocol Magnesium Hydroxide (Magnesium Hydroxide (Mom) Oral Liqd Udc) 30 ml PO Q4H PRN PRN Reason: Constipation Ondansetron HCl (Ondansetron 4 Mg/2 Ml Inj) 4 mg IV Q8H PRN PRN Reason: Nausea And Vomiting Sodium Chloride (Sodium Chloride 0.9% 10 Ml Flush Syringe) 10 ml IV BID SAEED Sodium Chloride (Sodium Chloride 0.9% 10 Ml Flush Syringe) 10 ml IV PRN PRN PRN Reason: LINE FLUSH Review of Systems Constitutional: malaise Ears, nose, mouth and throat: no nasal congestion, no sore throat Cardiovascular: no chest pain, no palpitations Respiratory: cough with sputum, shortness of breath Gastrointestinal: no abdominal pain, no nausea, no vomiting, no diarrhea Genitourinary Female: no flank pain, no dysuria, no hematuria Musculoskeletal: no neck pain, no low back pain Integumentary: no rash, no pruritis Neurological: no headaches, no confusion Psychiatric: no anxiety, no depression Exam - Constitutional Vitals: Temp Pulse Resp BP Pulse Ox 97.8 F 106 H 20 95/60 93 04/01/20 16:51 04/01/20 16:51 04/01/20 16:51 04/01/20 16:51 04/01/20 16:51 General appearance: Present: no acute distress, well-nourished - EENT Eyes: Present: PERRL, EOM intact. Absent: scleral icterus ENT: hearing intact, clear oral mucosa, dentition normal - Neck Neck: Present: supple, normal ROM - Respiratory Respiratory effort: normal Respiratory: bilateral: diminished - Cardiovascular Rhythm: regular Heart Sounds: Present: S1 & S2. Absent: gallop, systolic murmur, diastolic murmur, rub - Extremities Extremities: no ischemia, pulses intact, pulses symmetrical, No edema, normal temperature, normal color, Full ROM Peripheral Pulses: within normal limits - Abdominal General gastrointestinal: Present: soft, non-tender, non-distended, normal bowel sounds. Absent: mass - Integumentary Integumentary: Present: clear, warm, dry. Absent: rash - Musculoskeletal Musculoskeletal: strength equal bilaterally - Psychiatric Psychiatric: appropriate mood/affect, intact judgment & insight, memory intact, cooperative - Neurologic Neurologic: CNII-XII intact, no focal deficits, moves all extremities HEART Score - HEART Score Troponin: Troponin T < 0.010 ng/mL (0.00-0.029) 04/01/20 16:59 Results - Labs CBC & Chem 7: 04/01/20 16:59 04/01/20 16:59 Labs: Abnormal lab results 04/01/20 04/01/20 Range/Units 16:59 16:59 MCH 25 L (28-32) pg RDW 17.7 H (13.2-15.2) % [place] % (Auto) 12.7 H (0.0-7.3) % Sodium 135 L (137-145) mmol/L BUN 19 H (7-17) mg/dL Creatinine 1.4 H (0.6-1.2) mg/dL Glucose 115 H (65-100) mg/dL Assessment and Plan - Patient Problems (1) Dyspnea Current Visit: Yes Status: Acute Plan to address problem: Etiology unclear. Possible secondary to developing pneumonia. Will R/O for COVID -19 (2) Hypoxia Current Visit: Yes Status: Acute Plan to address problem: Will keep oxygen saturation greater than 94%. Will monitor oxygen saturation. (3) Diabetes Current Visit: No Status: Chronic Plan to address problem: Will monitor accuchecks (4) HTN (hypertension) Current Visit: No Status: Chronic Plan to address problem: Will resume routine medications and monitor vital signs closely. (5) Hyperlipidemia Current Visit: No Status: Chronic Plan to address problem: Will monitor lipid profile. (6) DVT prophylaxis Current Visit: No Status: Acute Plan to address problem: Will place on anticoagulation with Lovenox. (7) Full code status Current Visit: Yes Status: Acute Plan to address problem: Patient is full code.
[2020-04-02] MEDS: ACETAMINOPHEN 325 MG TAB PO PRN (01:41)
[2020-04-02 02:01] LABS: C-Reactive Protein 4.6 mg/dL (0.00-1.30)
[2020-04-02 06:12] LABS: Basophils % (Auto) 0.5 % (0.0-1.8); Eosinophils % (Auto) 0.1 % (0.0-4.3); Hematocrit 34.6 % (30.3-42.9); Lymphocytes # (Auto) 1.4 K/mm3 (1.2-5.4); Lymphocytes % (Auto) 25.1 % (13.4-35.0); Mean Corpuscular HGB Conc 32 % (30-34); Mean Corpuscular Volume 80 fl (79-97); Monocytes # (Auto) 0.7 K/mm3 (0.0-0.8); Monocytes % (Auto) 12.6 % (0.0-7.3); Platelet Count 202 K/mm3 (140-440); Red Blood Count 4.34 M/mm3 (3.65-5.03); Red Cell Distribution Width 17.8 % (13.2-15.2)
[2020-04-02 06:19] LABS: INR 1.06 (0.87-1.13)
[2020-04-02 06:28] LABS: Calcium 8.8 mg/dL (8.4-10.2)
[2020-04-02] MEDS: INSULIN LISPRO 100 UNIT/ML VIAL 3 mL SUB-Q SCH ×3 (08:16→17:39)
[2020-04-02] MEDS ORDERED: AZITHROMYCIN 500 MG in SODIUM CHLORIDE 0.9% 250ML 250 ML IV SCH (10:00)
[2020-04-02] MEDS ORDERED: cefTRIAXone/NS 2 GM/100 ML 2 GM/100 ML BAG IV SCH (10:00)
[2020-04-02] MEDS: SODIUM CHLORIDE 0.9% 1000 ML 1,000 ML IV SCH (10:01)
--- NOTE | 2020-04-02 13:00 | Consultation ---
History of Present Illness - Reason for Consult Consult date: 04/02/20 - History of Present Illness 64-year-old female past medical history hypertension, diabetes presented to hospital complaining of cough and shortness of breath. She notes generalized malaise associated with this and this has been going on for a few weeks. She otherwise denies any symptoms such as fevers, chills. She denies any known contact with people with COVID-19. Afebrile since admission with white count of 5.5. Covid testing pending. Normal procalcitonin, GFR 46. Blood cultures pending. Imaging personally reviewed: Chest x-ray: No acute disease. Review of systems: Deferred due to PPE conservation strategy. Past History Past Medical History: diabetes, hypertension, hyperlipidemia Past Surgical History: Other (Tubal ligation, foot surgery) Social history: no significant social history Family history: hypertension Medications and Allergies Allergies Allergy/AdvReac Type Severity Reaction Status Date / Time naproxen [From Naprosyn] Allergy Hives Verified 11/22/16 22:40 Home Medications Medication Instructions Recorded Confirmed Last Taken Type Ascorbic Acid [Vitamin C] 1,000 mg PO QDAY 05/13/13 11/24/16 1 Day Ago History ~11/23/16 Ferrous Sulfate [Iron Supplement 1 mg PO QDAY 05/13/13 11/24/16 1 Day Ago History 325 Mg tab] ~11/23/16 amLODIPine [Norvasc] 5 mg PO DAILY 03/19/16 11/24/16 1 Day Ago History ~11/23/16 Acetaminophen [Acetaminophen TAB] 650 mg PO Q6HR PRN 5 Days tablet 07/28/16 11/24/16 1 Day Ago Rx ~11/23/16 Cyclobenzaprine HCl [Flexeril 5 MG 5 mg PO TID 5 Days tab 11/25/16 Unknown Rx TAB] Insulin Aspart Prot/Aspart(Nf) 30 units SUB-Q BIDDIAB #1 units 11/25/16 Unknown Rx [NovoLOG Mix 70/30 VIAL] Lovastatin [Altoprev] 20 mg PO QPM #30 tab.er.24h 11/25/16 Unknown Rx Metoprolol [Lopressor TAB] 50 mg PO TID #180 tablet 11/25/16 Unknown Rx Multivitamin Tab W-MINERAL 1 tab PO QDAY #30 tablet 08/29/17 Unknown Rx [Multiple Vitamin/Mineral (Theragran M)] lisinopriL [Zestril TAB] 40 mg PO QDAY #30 tablet 11/25/16 Unknown Rx metFORMIN [Glucophage] 1,000 mg PO BID #60 tablet 11/25/16 Unknown Rx Active Meds: Active Medications Acetaminophen (Acetaminophen 325 Mg Tab) 650 mg PO Q4H PRN PRN Reason: Pain MILD(1-3)/Fever >100.5/PRINCE Last Admin: 04/02/20 01:41 Dose: 650 mg Documented by: Dextrose (Dextrose 50% In Water (25gm) 50 Ml Syringe) 50 ml IV Q30MIN PRN; Protocol PRN Reason: Hypoglycemia Enoxaparin Sodium (Enoxaparin 40 Mg/0.4 Ml Inj) 40 mg SUB-Q QDAY@2200 SAEED; Protocol Sodium Chloride (Nacl 0.9% 1000 Ml) 1,000 mls @ 75 mls/hr IV DIRECT SAEED Last Admin: 04/02/20 10:01 Dose: 75 mls/hr Documented by: Ceftriaxone Sodium (Rocephin/Ns 2 Gm/100 Ml) 2 gm in 100 mls @ 200 mls/hr IV Q24H SAEED; Protocol Last Admin: 04/02/20 10:01 Dose: 200 mls/hr Documented by: Azithromycin 500 mg/ Sodium (Chloride) 250 mls @ 250 mls/hr IV Q24H SAEED; Protocol Last Admin: 04/02/20 11:01 Dose: 250 mls/hr Documented by: Insulin Human Lispro (Insulin Lispro 100 Unit/Ml Vial 3 Ml) 0 unit SUB-Q ACHS SAEED; Protocol Last Admin: 04/02/20 12:00 Dose: 4 unit Documented by: Magnesium Hydroxide (Magnesium Hydroxide (Mom) Oral Liqd Udc) 30 ml PO Q4H PRN PRN Reason: Constipation Ondansetron HCl (Ondansetron 4 Mg/2 Ml Inj) 4 mg IV Q8H PRN PRN Reason: Nausea And Vomiting Sodium Chloride (Sodium Chloride 0.9% 10 Ml Flush Syringe) 10 ml IV BID SAEED Last Admin: 04/02/20 10:01 Dose: 10 ml Documented by: Sodium Chloride (Sodium Chloride 0.9% 10 Ml Flush Syringe) 10 ml IV PRN PRN PRN Reason: LINE FLUSH Physical Examination - Physical Exam Narrative exam: Physical exam deferred due to PPE conservation strategy. Please refer to primary team's note. - Constitutional Vitals: Vital Signs Temp Pulse Resp BP Pulse Ox 98.6 F 119 H 22 134/77 96 04/01/20 23:49 04/02/20 06:30 04/02/20 06:30 04/02/20 06:30 04/02/20 06:30 Temperature -Last 24 Hours Temperature 98.6 F Temperature 97.8 F Results - Labs CBC & Chem 7: 04/02/20 05:24 04/02/20 05:24 Labs: Abnormal lab results 04/01/20 04/01/20 04/01/20 Range/Units 16:59 16:59 23:49 MCH 25 L (28-32) pg RDW 17.7 H (13.2-15.2) % [place] % (Auto) 12.7 H (0.0-7.3) % D-Dimer 589.19 H (0-234) ng/mlDDU Sodium 135 L (137-145) mmol/L Carbon Dioxide (22-30) mmol/L BUN 19 H (7-17) mg/dL Creatinine 1.4 H (0.6-1.2) mg/dL Glucose 115 H (65-100) mg/dL POC Glucose (70-105) mg/dL Lactate Dehydrogenase (91-180) units/L C-Reactive Protein (0.00-1.30) mg/dL 04/01/20 04/02/20 04/02/20 Range/Units 23:49 05:24 05:24 MCH 25 L (28-32) pg RDW 17.8 H (13.2-15.2) % [place] % (Auto) 12.6 H (0.0-7.3) % D-Dimer (0-234) ng/mlDDU Sodium 135 L (137-145) mmol/L Carbon Dioxide 19 L D (22-30) mmol/L BUN 25 H (7-17) mg/dL Creatinine 1.4 H (0.6-1.2) mg/dL Glucose 191 H 189 H (65-100) mg/dL POC Glucose (70-105) mg/dL Lactate Dehydrogenase 225 H (91-180) units/L C-Reactive Protein 4.60 H (0.00-1.30) mg/dL 04/02/20 04/02/20 Range/Units 07:25 11:43 MCH (28-32) pg RDW (13.2-15.2) % [place] % (Auto) (0.0-7.3) % D-Dimer (0-234) ng/mlDDU Sodium (137-145) mmol/L Carbon Dioxide (22-30) mmol/L BUN (7-17) mg/dL Creatinine (0.6-1.2) mg/dL Glucose (65-100) mg/dL POC Glucose 191 H 287 H (70-105) mg/dL Lactate Dehydrogenase (91-180) units/L C-Reactive Protein (0.00-1.30) mg/dL Assessment and Plan Cultures: Covid pending A/P: 54-year-old female past medical history diabetes, morbid obesity, hypertension admitted with [id number] symptoms #Covid PUI: Await testing #Diabetes: tight glycemic control for best outcomes. #Morbid obesity: Associated worse COVID-19 outcomes Recs: -Obtain and follow-up COVID-19 testing -If COVID-19 positive and hypoxic requiring oxygen supplementation can start remdesivir and dexamethasone -Stop antibiotics as normal procalcitonin -Supportive care Thank you for the consult, we will continue to follow. MD [facility] ([facility] O: [phone] F: [phone]
[2020-04-03] MEDS: INSULIN LISPRO 100 UNIT/ML VIAL 3 mL SUB-Q SCH ×5 (00:51→22:08)
[2020-04-03] MEDS: ENOXAPARIN 40 MG/0.4 ML INJ SUB-Q SCH ×2 (02:09→21:55)
--- NOTE | 2020-04-03 07:42 | Progress Note ---
Assessment and Plan Assessment and plan: 64 year old female seen in the Emergency room today complaining cough and shortness of breath. Cough has been productive of some sputum. She has been having generalized malaise. This has been ongoing for a few weeks. She denies any fever or chills, chest pain, no headache or dizziness, no nausea or vomiting, no abdominal pain,no dysuria, no hematuria. Patient denies any sick contacts, no no recent travels, no contact with anyone with COVID-19. Work up in the emergency room today, labs and CXR were unremarkable. 04/02: Continue supportive care. Monitor Oxygen, ID input noted. Pronining Encouraged. (1) Acute Hypoxic Respiratory failure (2) Diabetes Mellitus (3) Severe COVID 19 (4) HTN (hypertension) Current Visit: No Status: Chronic Plan to address problem: Will resume routine medications and monitor vital signs closely. (5) Hyperlipidemia Current Visit: No Status: Chronic Plan to address problem: Will monitor lipid profile. (6) DVT prophylaxis Current Visit: No Status: Acute Plan to address problem: Will place on anticoagulation with Lovenox. (7) Full code status Current Visit: Yes Status: Acute Plan to address problem: Patient is full code. History Interval history: Patient seen and examined, still on 5liters of oxygen, encouraged to PRONE. Hospitalist Physical - Physical exam Narrative exam: General appearance: Present: Mild respiratory distress, well-nourished - EENT Eyes: Present: PERRL, EOM intact. Absent: scleral icterus ENT: hearing intact, clear oral mucosa, dentition normal - Neck Neck: Present: supple, normal ROM - Respiratory Respiratory effort: normal Respiratory: bilateral: diminished - Cardiovascular Rhythm: regular Heart Sounds: Present: S1 & S2. Absent: gallop, systolic murmur, diastolic murmur, rub - Extremities Extremities: no ischemia, pulses intact, pulses symmetrical, No edema, normal temperature, normal color, Full ROM Peripheral Pulses: within normal limits - Abdominal General gastrointestinal: Present: soft, non-tender, non-distended, normal bowel sounds. Absent: mass - Integumentary Integumentary: Present: clear, warm, dry. Absent: rash - Musculoskeletal Musculoskeletal: strength equal bilaterally - Psychiatric Psychiatric: appropriate mood/affect, intact judgment & insight, memory intact, cooperative - Neurologic Neurologic: CNII-XII intact, no focal deficits, moves all extremities - Constitutional Vitals: Temp Pulse Resp BP Pulse Ox 99.7 F H 127 H 20 198/85 97 04/03/20 04:27 04/03/20 04:27 04/03/20 04:27 04/03/20 04:27 04/03/20 04:27 General appearance: Present: no acute distress, well-nourished HEART Score - HEART Score Troponin: Troponin T < 0.010 ng/mL (0.00-0.029) 04/01/20 16:59 Results - Labs CBC & Chem 7: 04/02/20 05:24 04/02/20 05:24 Labs: Laboratory Last Values WBC 5.5 K/mm3 (4.5-11.0) 04/02/20 05:24 RBC 4.34 M/mm3 (3.65-5.03) 04/02/20 05:24 Hgb 11.0 gm/dl (10.1-14.3) 04/02/20 05:24 Hct 34.6 % (30.3-42.9) 04/02/20 05:24 MCV 80 fl (79-97) 04/02/20 05:24 MCH 25 pg (28-32) L 04/02/20 05:24 MCHC 32 % (30-34) 04/02/20 05:24 RDW 17.8 % (13.2-15.2) H 04/02/20 05:24 Plt Count 202 K/mm3 (140-440) 04/02/20 05:24 Lymph % (Auto) 25.1 % (13.4-35.0) 04/02/20 05:24 [place] % (Auto) 12.6 % (0.0-7.3) H 04/02/20 05:24 Eos % (Auto) 0.1 % (0.0-4.3) 04/02/20 05:24 Baso % (Auto) 0.5 % (0.0-1.8) 04/02/20 05:24 Lymph # (Auto) 1.4 K/mm3 (1.2-5.4) 04/02/20 05:24 [place] # (Auto) 0.7 K/mm3 (0.0-0.8) 04/02/20 05:24 Eos # (Auto) 0.0 K/mm3 (0.0-0.4) 04/02/20 05:24 Baso # (Auto) 0.0 K/mm3 (0.0-0.1) 04/02/20 05:24 Seg Neutrophils % 61.7 % (40.0-70.0) 04/02/20 05:24 Seg Neutrophils # 3.4 K/mm3 (1.8-7.7) 04/02/20 05:24 PT 13.6 Sec. (12.2-14.9) 04/02/20 05:24 INR 1.06 (0.87-1.13) 04/02/20 05:24 D-Dimer 589.19 ng/mlDDU (0-234) H 04/01/20 23:49 Sodium 135 mmol/L (137-145) L 04/02/20 05:24 Potassium 4.1 mmol/L (3.6-5.0) 04/02/20 05:24 Chloride 99.7 mmol/L (98-107) 04/02/20 05:24 Carbon Dioxide 19 mmol/L (22-30) L D 04/02/20 05:24 Anion Gap 20 mmol/L 04/02/20 05:24 BUN 25 mg/dL (7-17) H 04/02/20 05:24 Creatinine 1.4 mg/dL (0.6-1.2) H 04/02/20 05:24 Estimated GFR 46 ml/min 04/02/20 05:24 BUN/Creatinine Ratio 18 % 04/02/20 05:24 Glucose 189 mg/dL (65-100) H 04/02/20 05:24 POC Glucose 291 mg/dL (70-105) H 04/02/20 23:23 Lactic Acid 1.60 mmol/L (0.7-2.0) 04/01/20 23:49 Calcium 8.8 mg/dL (8.4-10.2) 04/02/20 05:24 Ferritin 34.5 ng/mL (10.0-200.0) 04/01/20 23:49 Total Bilirubin 0.20 mg/dL (0.1-1.2) 04/01/20 16:59 AST 37 units/L (5-40) 04/01/20 16:59 ALT 51 units/L (7-56) 04/01/20 16:59 Alkaline Phosphatase 88 units/L (35-129) 04/01/20 16:59 Lactate Dehydrogenase 225 units/L (91-180) H 04/01/20 23:49 Troponin T < 0.010 ng/mL (0.00-0.029) 04/01/20 16:59 C-Reactive Protein 4.60 mg/dL (0.00-1.30) H 04/01/20 23:49 NT-Pro-B Natriuret Pep 29.88 pg/mL (0-900) 04/01/20 16:59 Total Protein 7.9 g/dL (6.3-8.2) 04/01/20 16:59 Albumin 4.0 g/dL (3.9-5) 04/01/20 16:59 Albumin/Globulin Ratio 1.0 % 04/01/20 16:59 Procalcitonin 0.08 ng/mL (<0.15) 04/01/20 23:49 Coronavirus (PCR) Positive (Negative) A 04/02/20 Unknown Microbiology: Microbiology 04/01/20 23:49 Peripheral/Venous Blood Culture - Preliminary NO GROWTH AFTER 24 HOURS 04/01/20 23:39 Peripheral/Venous Blood Culture - Preliminary NO GROWTH AFTER 24 HOURS [place]/IV: Voiding Method Toilet Active Medications - Current Medications Current Medications: Generic Name Dose Route Start Last Admin Trade Name Freq PRN Reason Stop Dose Admin Acetaminophen 650 mg 04/01/20 22:32 04/02/20 01:41 Acetaminophen 325 Mg Tab PO 650 mg Q4H PRN Administration Pain MILD(1-3)/Fever >100.5/PRINCE Dextrose 50 ml 04/01/20 22:32 Dextrose 50% In Water (25gm) 50 Ml Syringe IV Q30MIN PRN Hypoglycemia Protocol Enoxaparin Sodium 40 mg 04/02/20 22:00 04/03/20 02:09 Enoxaparin 40 Mg/0.4 Ml Inj SUB-Q Not Given QDAY@2200 SAEED Protocol Sodium Chloride 1,000 mls @ 75 mls/hr 04/01/20 22:45 04/02/20 10:01 Nacl 0.9% 1000 Ml IV 75 mls/hr DIRECT SAEED Administration Insulin Human Lispro 0 unit 04/02/20 07:30 04/03/20 00:51 Insulin Lispro 100 Unit/Ml Vial 3 Ml SUB-Q 4 unit ACHS SAEED Administration Protocol Magnesium Hydroxide 30 ml 04/01/20 22:32 Magnesium Hydroxide (Mom) Oral Liqd Udc PO Q4H PRN Constipation Ondansetron HCl 4 mg 04/01/20 22:32 Ondansetron 4 Mg/2 Ml Inj IV Q8H PRN Nausea And Vomiting Sodium Chloride 10 ml 04/02/20 10:00 04/02/20 10:01 Sodium Chloride 0.9% 10 Ml Flush Syringe IV 10 ml BID SAEED Administration Sodium Chloride 10 ml 04/01/20 22:32 Sodium Chloride 0.9% 10 Ml Flush Syringe IV PRN PRN LINE FLUSH Nutrition/Malnutrition Assess - Dietary Evaluation Nutrition/Malnutrition Findings: Nutrition Notes Start: 04/02/20 14:21 Freq: Status: Active Protocol: Document 04/02/20 14:21 [facility] (Rec: 04/02/20 14:23 [facility] [id number]) Nutrition Notes Need for Assessment generated from: MD Order,Education Initial or Follow up Brief Note Current Diet Cardiac/Consistent CHO Subjective/Other Information RD consulted for diet education. Pt in ED at this time. Minimum of two criteria No Nutrition Intervention Follow-Up By: 04/06/20 Additional Comments F/U: diet education needs
--- NOTE | 2020-04-03 08:39 | Progress Note ---
Assessment and Plan Cultures: Covid positive Blood cultures no growth today A/P: 54-year-old female past medical history diabetes, morbid obesity, hypertension admitted with [id number] symptoms #Severe COVID-19 pneumonia: Inflammatory markers elevated. #Acute hypoxic respiratory failure: O2 sat dropped to 80s, on 3 L nasal cannula. #Diabetes: tight glycemic control for best outcomes. #Morbid obesity: Associated worse COVID-19 outcomes Recs: -Start remdesivir for 5 days -CrCL >30 -Start dexamethasone total 10 day -Prone positioning as possible -Anticoagulation per protocol -Recheck markers today -Supportive care Aure Martin MD [facility] ([facility]) Office [phone] Subjective Date of service: 04/03/20 Principal diagnosis: COVID-19 Interval history: Patient is now on 3 L nasal cannula, no fever, no desaturations overnight. Tachycardia on monitor. Objective - Exam Narrative Exam: Physical Exam: reviewed ED and hospitalist notes. Deferred to prevent COVID-19 transmission. - Constitutional Vitals: Vital Signs Temp Pulse Resp BP Pulse Ox 99.7 F H 127 H 20 198/85 97 04/03/20 04:27 04/03/20 04:27 04/03/20 04:27 04/03/20 04:27 04/03/20 04:27 Temperature -Last 24 Hours Temperature 99.7 F Temperature 98.7 F Temperature 98.7 F - Labs CBC & Chem 7: 04/02/20 05:24 04/02/20 05:24 Labs: Abnormal lab results 04/02/20 04/02/20 04/02/20 Range/Units 11:43 16:58 23:23 POC Glucose 287 H 267 H 291 H (70-105) mg/dL Coronavirus (PCR) (Negative) 04/02/20 04/03/20 Range/Units Unknown 08:33 POC Glucose 283 H (70-105) mg/dL Coronavirus (PCR) Positive A (Negative)
[2020-04-03] MEDS: ACETAMINOPHEN 325 MG TAB PO PRN (08:53)
[2020-04-03] MEDS: dexAMETHasone 4 MG/ML VIAL IV SCH (10:20)
[2020-04-03] MEDS: SODIUM CHLORIDE 0.9% 50 ML IVPB IV SCH (10:44)
[2020-04-03] MEDS ORDERED: REMDESIVIR 200 MG in SODIUM CHLORIDE 0.9% 250ML 250 ML IV ONE (11:00)
[2020-04-03] MEDS ORDERED: REMDESIVIR 100 MG VIAL IV ONE (11:00)
--- NOTE | 2020-04-03 11:14 | Event Note ---
Date: 04/03/20 Patient last seen by this provider 5 years ago after she had acute heart failure requiring intubation. Has never followed up in our office. ordered BNP for now. Needs better BP control. could consider repeat echo as well. Agree with current COVID treatment. Proning is lee.
[2020-04-03 11:18] LABS: C-Reactive Protein 4.9 mg/dL (0.00-1.30)
[2020-04-03] MEDS ORDERED: hydrALAZINE 20 MG/1 ML INJ IV PRN (11:42)
--- NOTE | 2020-04-03 11:50 | Progress Note ---
Assessment and Plan Assessment and plan: 64 year old female seen in the Emergency room complaining cough and shortness of breath. Cough has been productive of some sputum. She has been having generalized malaise. This has been ongoing for a few weeks. She denies any fever or chills, chest pain, no headache or dizziness, no nausea or vomiting, no abdominal pain,no dysuria, no hematuria. Patient denies any sick contacts, no no recent travels, no contact with anyone with COVID-19. Work up in the emergency room today, labs and CXR were unremarkable. 04/02: Continue supportive care. Monitor Oxygen, ID input noted. Pronining Encouraged. 04/03: Continue management of COVID19 with ID recs, On Remdesivir and Decadrone, will resume home meds as this has not been started, This will help better control Blood pressure and Blood glucose. Plan of care discussed in detail. Pulmonary consulted. Prior hx of Congestive heart failure and requiring Intubation for the same about 5 years ago noted. Echo ordered. (1) Acute Hypoxic Respiratory failure (2) Diabetes Mellitus (3) Severe COVID 19 (4) HTN (hypertension) Current Visit: No Status: Chronic Plan to address problem: Will resume routine medications and monitor vital signs closely. (5) Hyperlipidemia Current Visit: No Status: Chronic Plan to address problem: Will monitor lipid profile. (6) DVT prophylaxis Current Visit: No Status: Acute Plan to address problem: Will place on anticoagulation with Lovenox. (7) Full code status Current Visit: Yes Status: Acute Plan to address problem: Patient is full code. History Interval history: Patient seen and examined, still on 5liters of oxygen, Sitting up at bedside. Hospitalist Physical - Physical exam Narrative exam: General appearance: Present: Mild respiratory distress, well-nourished - EENT Eyes: Present: PERRL, EOM intact. Absent: scleral icterus ENT: hearing intact, clear oral mucosa, dentition normal - Neck Neck: Present: supple, normal ROM - Respiratory Respiratory effort: normal Respiratory: bilateral: diminished - Cardiovascular Rhythm: regular Heart Sounds: Present: S1 & S2. Absent: gallop, systolic murmur, diastolic murmur, rub - Extremities Extremities: no ischemia, pulses intact, pulses symmetrical, No edema, normal temperature, normal color, Full ROM Peripheral Pulses: within normal limits - Abdominal General gastrointestinal: Present: soft, non-tender, non-distended, normal bowel sounds. Absent: mass - Integumentary Integumentary: Present: clear, warm, dry. Absent: rash - Musculoskeletal Musculoskeletal: strength equal bilaterally - Psychiatric Psychiatric: appropriate mood/affect, intact judgment & insight, memory intact, cooperative - Neurologic Neurologic: CNII-XII intact, no focal deficits, moves all extremities - Constitutional Vitals: Temp Pulse Resp BP Pulse Ox 99.0 F 119 H 20 143/83 95 04/03/20 11:26 04/03/20 11:26 04/03/20 11:26 04/03/20 11:26 04/03/20 11:26 General appearance: Present: no acute distress, well-nourished HEART Score - HEART Score Troponin: Troponin T < 0.010 ng/mL (0.00-0.029) 04/01/20 16:59 Results - Labs CBC & Chem 7: 04/02/20 05:24 04/02/20 05:24 Labs: Laboratory Last Values WBC 5.5 K/mm3 (4.5-11.0) 04/02/20 05:24 RBC 4.34 M/mm3 (3.65-5.03) 04/02/20 05:24 Hgb 11.0 gm/dl (10.1-14.3) 04/02/20 05:24 Hct 34.6 % (30.3-42.9) 04/02/20 05:24 MCV 80 fl (79-97) 04/02/20 05:24 MCH 25 pg (28-32) L 04/02/20 05:24 MCHC 32 % (30-34) 04/02/20 05:24 RDW 17.8 % (13.2-15.2) H 04/02/20 05:24 Plt Count 202 K/mm3 (140-440) 04/02/20 05:24 Lymph % (Auto) 25.1 % (13.4-35.0) 04/02/20 05:24 [place] % (Auto) 12.6 % (0.0-7.3) H 04/02/20 05:24 Eos % (Auto) 0.1 % (0.0-4.3) 04/02/20 05:24 Baso % (Auto) 0.5 % (0.0-1.8) 04/02/20 05:24 Lymph # (Auto) 1.4 K/mm3 (1.2-5.4) 04/02/20 05:24 [place] # (Auto) 0.7 K/mm3 (0.0-0.8) 04/02/20 05:24 Eos # (Auto) 0.0 K/mm3 (0.0-0.4) 04/02/20 05:24 Baso # (Auto) 0.0 K/mm3 (0.0-0.1) 04/02/20 05:24 Seg Neutrophils % 61.7 % (40.0-70.0) 04/02/20 05:24 Seg Neutrophils # 3.4 K/mm3 (1.8-7.7) 04/02/20 05:24 PT 13.6 Sec. (12.2-14.9) 04/02/20 05:24 INR 1.06 (0.87-1.13) 04/02/20 05:24 D-Dimer 606.97 ng/mlDDU (0-234) H 04/03/20 10:26 Sodium 135 mmol/L (137-145) L 04/02/20 05:24 Potassium 4.1 mmol/L (3.6-5.0) 04/02/20 05:24 Chloride 99.7 mmol/L (98-107) 04/02/20 05:24 Carbon Dioxide 19 mmol/L (22-30) L D 04/02/20 05:24 Anion Gap 20 mmol/L 04/02/20 05:24 BUN 25 mg/dL (7-17) H 04/02/20 05:24 Creatinine 1.4 mg/dL (0.6-1.2) H 04/02/20 05:24 Estimated GFR 46 ml/min 04/02/20 05:24 BUN/Creatinine Ratio 18 % 04/02/20 05:24 Glucose 189 mg/dL (65-100) H 04/02/20 05:24 POC Glucose 317 mg/dL (70-105) H 04/03/20 11:26 Lactic Acid 1.60 mmol/L (0.7-2.0) 04/01/20 23:49 Calcium 8.8 mg/dL (8.4-10.2) 04/02/20 05:24 Ferritin 52.0 ng/mL (10.0-200.0) 04/03/20 10:26 Total Bilirubin 0.20 mg/dL (0.1-1.2) 04/01/20 16:59 AST 37 units/L (5-40) 04/01/20 16:59 ALT 51 units/L (7-56) 04/01/20 16:59 Alkaline Phosphatase 88 units/L (35-129) 04/01/20 16:59 Lactate Dehydrogenase 256 units/L (91-180) H 04/03/20 10:26 Troponin T < 0.010 ng/mL (0.00-0.029) 04/01/20 16:59 C-Reactive Protein 4.90 mg/dL (0.00-1.30) H 04/03/20 10:26 NT-Pro-B Natriuret Pep 29.88 pg/mL (0-900) 04/01/20 16:59 Total Protein 7.9 g/dL (6.3-8.2) 04/01/20 16:59 Albumin 4.0 g/dL (3.9-5) 04/01/20 16:59 Albumin/Globulin Ratio 1.0 % 04/01/20 16:59 Procalcitonin 0.08 ng/mL (<0.15) 04/01/20 23:49 Coronavirus (PCR) Positive (Negative) A 04/02/20 Unknown Microbiology: Microbiology 04/01/20 23:49 Peripheral/Venous Blood Culture - Preliminary NO GROWTH AFTER 24 HOURS 04/01/20 23:39 Peripheral/Venous Blood Culture - Preliminary NO GROWTH AFTER 24 HOURS [place]/IV: Voiding Method Toilet Active Medications - Current Medications Current Medications: Generic Name Dose Route Start Last Admin Trade Name Freq PRN Reason Stop Dose Admin Acetaminophen 650 mg 04/01/20 22:32 04/03/20 08:53 Acetaminophen 325 Mg Tab PO 650 mg Q4H PRN Administration Pain MILD(1-3)/Fever >100.5/PRINCE Amlodipine Besylate 5 mg 04/03/20 12:00 Amlodipine 5 Mg Tab PO DAILY REPLACED BY [facility] Ascorbic Acid 1,000 mg 04/03/20 12:00 Ascorbic Acid 500 Mg Tab PO QDAY REPLACED BY [facility] Dexamethasone 6 mg 04/03/20 10:00 04/03/20 10:20 Dexamethasone 4 Mg/Ml Vial IV 04/12/20 10:01 6 mg Q24HR SAEED Administration Dextrose 50 ml 04/01/20 22:32 Dextrose 50% In Water (25gm) 50 Ml Syringe IV Q30MIN PRN Hypoglycemia Protocol Enoxaparin Sodium 40 mg 04/02/20 22:00 04/03/20 02:09 Enoxaparin 40 Mg/0.4 Ml Inj SUB-Q Not Given QDAY@2200 REPLACED BY [facility] Protocol Ferrous Sulfate 325 mg 04/03/20 12:00 Ferrous Sulfate 325 Mg Tab PO QDAY REPLACED BY [facility] Hydralazine HCl 10 mg 04/03/20 11:42 Hydralazine 20 Mg/1 Ml Inj IV Q4HR PRN Hypertension Sodium Chloride 1,000 mls @ 75 mls/hr 04/01/20 22:45 04/02/20 10:01 Nacl 0.9% 1000 Ml IV 75 mls/hr DIRECT SAEED Administration REMDESIVIR 100 mg/ Sodium 250 mls @ 500 mls/hr 04/04/20 21:00 Chloride IV 04/07/20 21:29 Q24HR@2100 REPLACED BY [facility] Insulin Human Isoph/Insulin Regular 30 unit 04/03/20 17:00 Insulin Nph/Regular 70/30 Inj SUB-Q BIDDIAB REPLACED BY [facility] Insulin Human Lispro 0 unit 04/02/20 07:30 04/03/20 08:53 Insulin Lispro 100 Unit/Ml Vial 3 Ml SUB-Q 4 unit ACHS REPLACED BY [facility] Administration Protocol Lisinopril 40 mg 04/03/20 12:00 Lisinopril 40 Mg Tab PO QDAY REPLACED BY [facility] Magnesium Hydroxide 30 ml 04/01/20 22:32 Magnesium Hydroxide (Mom) Oral Liqd Udc PO Q4H PRN Constipation Metoprolol Tartrate 50 mg 04/03/20 14:00 Metoprolol Tartrate 50 Mg Tab PO TID REPLACED BY [facility] Multivitamins/Minerals 1 each 04/03/20 12:00 Multivitamins,Ther W-Minerals Tab PO QDAY REPLACED BY [facility] Ondansetron HCl 4 mg 04/01/20 22:32 Ondansetron 4 Mg/2 Ml Inj IV Q8H PRN Nausea And Vomiting Sodium Chloride 10 ml 04/02/20 10:00 04/03/20 08:59 Sodium Chloride 0.9% 10 Ml Flush Syringe IV 10 ml BID SAEED Administration Sodium Chloride 10 ml 04/01/20 22:32 Sodium Chloride 0.9% 10 Ml Flush Syringe IV PRN PRN LINE FLUSH Sodium Chloride 50 ml 04/03/20 11:30 04/03/20 10:44 Sodium Chloride 0.9% 50 Ml Ivpb IV 04/07/20 21:01 50 ml Q24HR@2100 SAEED Administration Nutrition/Malnutrition Assess - Dietary Evaluation Nutrition/Malnutrition Findings: Nutrition Notes Start: 04/02/20 14:21 Freq: Status: Active Protocol: Document 04/02/20 14:21 [facility] (Rec: 04/02/20 14:23 [facility] [id number]) Nutrition Notes Need for Assessment generated from: MD Order,Education Initial or Follow up Brief Note Current Diet Cardiac/Consistent CHO Subjective/Other Information RD consulted for diet education. Pt in ED at this time. Minimum of two criteria No Nutrition Intervention Follow-Up By: 04/06/20 Additional Comments F/U: diet education needs
[2020-04-03] MEDS ORDERED: ASCORBIC ACID 500 MG TAB PO SCH (12:00)
[2020-04-03] MEDS: MULTIVITAMINS,THER W-MINERALS TAB PO SCH (12:18)
[2020-04-03] MEDS: amLODIPine 5 MG TAB PO SCH (12:18)
[2020-04-03] MEDS: FERROUS SULFATE 325 MG TAB PO SCH (12:18)
[2020-04-03] MEDS: LISINOPRIL 40 MG TAB PO SCH (12:19)
[2020-04-03] MEDS ORDERED: METOPROLOL TARTRATE 25 MG TAB PO SCH (14:00)
[2020-04-03] MEDS: METOPROLOL TARTRATE 50 MG TAB PO SCH ×2 (14:46→21:55)
[2020-04-03] MEDS ORDERED: INSULIN ASPART SUB-Q SCH (17:00)
[2020-04-03] MEDS ORDERED: INSULIN ASPART PROTAMINE SUB-Q SCH (17:00)
[2020-04-03] MEDS: INSULIN NPH/REGULAR 70/30 INJ SUB-Q SCH (17:56)
[2020-04-03] MEDS: SODIUM CHLORIDE 0.9% 1000 ML 1,000 ML IV SCH (18:07)
--- NOTE | 2020-04-04 09:50 | Progress Note ---
Assessment and Plan Assessment and plan: 64 year old female seen in the Emergency room complaining cough and shortness of breath. Cough has been productive of some sputum. She has been having generalized malaise. This has been ongoing for a few weeks. She denies any fever or chills, chest pain, no headache or dizziness, no nausea or vomiting, no abdominal pain,no dysuria, no hematuria. Patient denies any sick contacts, no no recent travels, no contact with anyone with COVID-19. Work up in the emergency room today, labs and CXR were unremarkable. 04/02: Continue supportive care. Monitor Oxygen, ID input noted. Pronining Encouraged. 04/03: Continue management of COVID19 with ID recs, On Remdesivir and Decadrone, will resume home meds as this has not been started, This will help better control Blood pressure and Blood glucose. Plan of care discussed in detail. Pulmonary consulted. Prior hx of Congestive heart failure and requiring Intubation for the same about 5 years ago noted. Echo ordered. 04/04: Clinically stable. Continue supportive care. Will recommend outpatient Ortho and Case management to assist. Prone recommended. Adjust insulin. Continue remdesir and decadrone, Pulm and ID noted. Acute Hypoxic Respiratory failure Diabetes Mellitus Severe COVID 19 HTN (hypertension) Current Visit: No Status: Chronic Plan to address problem: Will resume routine medications and monitor vital signs closely. Hyperlipidemia Current Visit: No Status: Chronic Plan to address problem: Will monitor lipid profile. Morbid Obesity Weightloss recommended and discussed Chronic Osteoathritis Patient ambulating with clutches, Pain control DVT prophylaxis Current Visit: No Status: Acute Plan to address problem: Will place on anticoagulation with Lovenox. Full code status Current Visit: Yes Status: Acute Plan to address problem: Patient is full code. History Interval history: Patient seen and examined, still on 5 liters of oxygen, Sitting up at bedside. Complains of other chronic Knee pain Hospitalist Physical - Physical exam Narrative exam: General appearance: Present: Mild respiratory distress, Sitting up, well- nourished - EENT Eyes: Present: PERRL, EOM intact. Absent: scleral icterus ENT: hearing intact, clear oral mucosa, dentition normal - Neck Neck: Present: supple, normal ROM - Respiratory Respiratory effort: normal Respiratory: bilateral: diminished - Cardiovascular Rhythm: regular Heart Sounds: Present: S1 & S2. Absent: gallop, systolic murmur, diastolic murmur, rub - Extremities Extremities: no ischemia, pulses intact, pulses symmetrical, No edema, normal temperature, normal color, Full ROM Peripheral Pulses: within normal limits - Abdominal General gastrointestinal: Present: soft, non-tender, non-distended, normal bowel sounds. Absent: mass - Integumentary Integumentary: Present: clear, warm, dry. Absent: rash - Musculoskeletal Musculoskeletal: strength equal bilaterally - Psychiatric Psychiatric: appropriate mood/affect, intact judgment & insight, memory intact, cooperative - Neurologic Neurologic: CNII-XII intact, no focal deficits, moves all extremities - Constitutional Vitals: Temp Pulse Resp BP Pulse Ox 98.0 F 96 H 22 95/66 94 04/04/20 05:29 04/04/20 05:29 04/04/20 05:29 04/04/20 05:29 04/04/20 05:29 General appearance: Present: no acute distress, well-nourished HEART Score - HEART Score Troponin: Troponin T < 0.010 ng/mL (0.00-0.029) 04/01/20 16:59 Results - Labs CBC & Chem 7: 04/05/20 05:51 04/05/20 05:51 Labs: Laboratory Last Values WBC 5.5 K/mm3 (4.5-11.0) 04/02/20 05:24 RBC 4.34 M/mm3 (3.65-5.03) 04/02/20 05:24 Hgb 11.0 gm/dl (10.1-14.3) 04/02/20 05:24 Hct 34.6 % (30.3-42.9) 04/02/20 05:24 MCV 80 fl (79-97) 04/02/20 05:24 MCH 25 pg (28-32) L 04/02/20 05:24 MCHC 32 % (30-34) 04/02/20 05:24 RDW 17.8 % (13.2-15.2) H 04/02/20 05:24 Plt Count 202 K/mm3 (140-440) 04/02/20 05:24 Lymph % (Auto) 25.1 % (13.4-35.0) 04/02/20 05:24 [place] % (Auto) 12.6 % (0.0-7.3) H 04/02/20 05:24 Eos % (Auto) 0.1 % (0.0-4.3) 04/02/20 05:24 Baso % (Auto) 0.5 % (0.0-1.8) 04/02/20 05:24 Lymph # (Auto) 1.4 K/mm3 (1.2-5.4) 04/02/20 05:24 [place] # (Auto) 0.7 K/mm3 (0.0-0.8) 04/02/20 05:24 Eos # (Auto) 0.0 K/mm3 (0.0-0.4) 04/02/20 05:24 Baso # (Auto) 0.0 K/mm3 (0.0-0.1) 04/02/20 05:24 Seg Neutrophils % 61.7 % (40.0-70.0) 04/02/20 05:24 Seg Neutrophils # 3.4 K/mm3 (1.8-7.7) 04/02/20 05:24 PT 13.6 Sec. (12.2-14.9) 04/02/20 05:24 INR 1.06 (0.87-1.13) 04/02/20 05:24 D-Dimer 606.97 ng/mlDDU (0-234) H 04/03/20 10:26 Sodium 135 mmol/L (137-145) L 04/02/20 05:24 Potassium 4.1 mmol/L (3.6-5.0) 04/02/20 05:24 Chloride 99.7 mmol/L (98-107) 04/02/20 05:24 Carbon Dioxide 19 mmol/L (22-30) L D 04/02/20 05:24 Anion Gap 20 mmol/L 04/02/20 05:24 BUN 25 mg/dL (7-17) H 04/02/20 05:24 Creatinine 1.4 mg/dL (0.6-1.2) H 04/02/20 05:24 Estimated GFR 46 ml/min 04/02/20 05:24 BUN/Creatinine Ratio 18 % 04/02/20 05:24 Glucose 189 mg/dL (65-100) H 04/02/20 05:24 POC Glucose 339 mg/dL (70-105) H 04/04/20 08:09 Lactic Acid 1.60 mmol/L (0.7-2.0) 04/01/20 23:49 Calcium 8.8 mg/dL (8.4-10.2) 04/02/20 05:24 Ferritin 52.0 ng/mL (10.0-200.0) 04/03/20 10:26 Total Bilirubin 0.20 mg/dL (0.1-1.2) 04/01/20 16:59 AST 37 units/L (5-40) 04/01/20 16:59 ALT 51 units/L (7-56) 04/01/20 16:59 Alkaline Phosphatase 88 units/L (35-129) 04/01/20 16:59 Lactate Dehydrogenase 256 units/L (91-180) H 04/03/20 10:26 Troponin T < 0.010 ng/mL (0.00-0.029) 04/01/20 16:59 C-Reactive Protein 4.90 mg/dL (0.00-1.30) H 04/03/20 10:26 NT-Pro-B Natriuret Pep 34.07 pg/mL (0-900) 04/03/20 10:26 Total Protein 7.9 g/dL (6.3-8.2) 04/01/20 16:59 Albumin 4.0 g/dL (3.9-5) 04/01/20 16:59 Albumin/Globulin Ratio 1.0 % 04/01/20 16:59 Procalcitonin 0.08 ng/mL (<0.15) 04/01/20 23:49 Coronavirus (PCR) Positive (Negative) A 04/02/20 Unknown Influenza A (Rapid) Negative (Negative) 04/03/20 18:30 Influenza B (Rapid) Negative (Negative) 04/03/20 18:30 Microbiology: Microbiology 04/01/20 23:49 Peripheral/Venous Blood Culture - Preliminary NO GROWTH AFTER 48 HOURS 04/01/20 23:39 Peripheral/Venous Blood Culture - Preliminary NO GROWTH AFTER 48 HOURS [place]/IV: Voiding Method Bedside Commode IV Catheter Type [Right Hand] INT / Saline Lock Active Medications - Current Medications Current Medications: Generic Name Dose Route Start Last Admin Trade Name Freq PRN Reason Stop Dose Admin Acetaminophen 650 mg 04/01/20 22:32 04/03/20 08:53 Acetaminophen 325 Mg Tab PO 650 mg Q4H PRN Administration Pain MILD(1-3)/Fever >100.5/PRINCE Amlodipine Besylate 5 mg 04/03/20 12:00 04/03/20 12:18 Amlodipine 5 Mg Tab PO 5 mg DAILY SAEED Administration Dexamethasone 6 mg 04/03/20 10:00 04/03/20 10:20 Dexamethasone 4 Mg/Ml Vial IV 04/12/20 10:01 6 mg Q24HR SAEED Administration Dextrose 50 ml 04/01/20 22:32 Dextrose 50% In Water (25gm) 50 Ml Syringe IV Q30MIN PRN Hypoglycemia Protocol Ferrous Sulfate 325 mg 04/03/20 12:00 04/03/20 12:18 Ferrous Sulfate 325 Mg Tab PO 325 mg QDAY SAEED Administration Hydralazine HCl 10 mg 04/03/20 11:42 Hydralazine 20 Mg/1 Ml Inj IV Q4HR PRN Hypertension REMDESIVIR 100 mg/ Sodium 250 mls @ 500 mls/hr 04/04/20 21:00 Chloride IV 04/07/20 21:29 Q24HR@2100 SAEED Insulin Human Isoph/Insulin Regular 30 unit 04/03/20 17:00 04/03/20 17:56 Insulin Nph/Regular 70/30 Inj SUB-Q 30 unit BIDDIAB SAEED Administration Insulin Human Lispro 0 unit 04/02/20 07:30 04/03/20 22:08 Insulin Lispro 100 Unit/Ml Vial 3 Ml SUB-Q 12 unit ACHS SAEED Administration Protocol Lisinopril 40 mg 04/03/20 12:00 04/03/20 12:19 Lisinopril 40 Mg Tab PO 40 mg QDAY SAEED Administration Magnesium Hydroxide 30 ml 04/01/20 22:32 Magnesium Hydroxide (Mom) Oral Liqd Udc PO Q4H PRN Constipation Metoprolol Tartrate 50 mg 04/03/20 14:00 04/03/20 21:55 Metoprolol Tartrate 50 Mg Tab PO 50 mg TID SAEED Administration Multivitamins/Minerals 1 each 04/03/20 12:00 04/03/20 12:18 Multivitamins,Ther W-Minerals Tab PO 1 each QDAY SAEED Administration Ondansetron HCl 4 mg 04/01/20 22:32 Ondansetron 4 Mg/2 Ml Inj IV Q8H PRN Nausea And Vomiting Sodium Chloride 10 ml 04/02/20 10:00 04/03/20 21:56 Sodium Chloride 0.9% 10 Ml Flush Syringe IV 10 ml BID SAEED Administration Sodium Chloride 10 ml 04/01/20 22:32 Sodium Chloride 0.9% 10 Ml Flush Syringe IV PRN PRN LINE FLUSH Sodium Chloride 50 ml 04/03/20 11:30 04/03/20 10:44 Sodium Chloride 0.9% 50 Ml Ivpb IV 04/07/20 21:01 50 ml Q24HR@2100 SAEED Administration Nutrition/Malnutrition Assess - Dietary Evaluation Nutrition/Malnutrition Findings: Nutrition Notes Start: 04/02/20 14:21 Freq: Status: Active Protocol: Document 04/02/20 14:21 [facility] (Rec: 04/02/20 14:23 [facility] [id number]) Nutrition Notes Need for Assessment generated from: MD Order,Education Initial or Follow up Brief Note Current Diet Cardiac/Consistent CHO Subjective/Other Information RD consulted for diet education. Pt in ED at this time. Minimum of two criteria No Nutrition Intervention Follow-Up By: 04/06/20 Additional Comments F/U: diet education needs
[2020-04-04] MEDS ORDERED: ASCORBIC ACID 1000 MG PO SCH (10:00)
[2020-04-04] MEDS ORDERED: ENOXAPARIN 100 MG/1 ML INJ SUB-Q SCH (10:00)
[2020-04-04] MEDS ORDERED: INSULIN REGULAR, HUMAN 100 UNIT/ML 3ML VIAL SUB-Q NR (10:00)
[2020-04-04] MEDS ORDERED: LISINOPRIL 10 MG TAB PO SCH (10:00)
--- NOTE | 2020-04-04 10:06 | Consultation ---
History of Present Illness Consult date: 04/04/20 Requesting physician: FABI PEREZ Reason for consult: hypoxemia, other (COVID) History of present illness: 64 y/o woman admitted with acute respiratory failure, found to be COVID 19 positive. I last saw her 5 years ago as she was intubated in the unit for heart failure and pulmonary edema. She has now tested positive for COVID 19. Hypertensive. Not sure about other follow up but never followed up with us. Patient currently on nasal cannula at 5 liters per minute. Past History Past Medical History: diabetes, hypertension, hyperlipidemia Past Surgical History: Other (Tubal ligation, foot surgery) Social history: no significant social history Family history: hypertension Medications and Allergies Allergies Allergy/AdvReac Type Severity Reaction Status Date / Time naproxen [From Naprosyn] Allergy Hives Verified 11/22/16 22:40 Home Medications Medication Instructions Recorded Confirmed Last Taken Type Ascorbic Acid [Vitamin C] 1,000 mg PO QDAY 05/13/13 04/02/20 1 Day Ago History ~11/23/16 Ferrous Sulfate [Iron Supplement 1 mg PO QDAY 05/13/13 04/02/20 1 Day Ago History 325 Mg tab] ~11/23/16 amLODIPine [Norvasc] 5 mg PO DAILY 03/19/16 04/02/20 1 Day Ago History ~11/23/16 Acetaminophen [Acetaminophen TAB] 650 mg PO Q6HR PRN 5 Days tablet 07/28/16 04/02/20 1 Day Ago Rx ~11/23/16 Insulin Aspart Prot/Aspart(Nf) 30 units SUB-Q BIDDIAB #1 units 11/25/16 04/02/20 Unknown Rx [NovoLOG Mix 70/30 VIAL] Metoprolol [Lopressor TAB] 50 mg PO TID #180 tablet 11/25/16 04/02/20 Unknown Rx Multivitamin Tab W-MINERAL 1 tab PO QDAY #30 tablet 11/25/16 04/02/20 Unknown Rx [Multiple Vitamin/Mineral (Theragran M)] lisinopriL [Zestril TAB] 40 mg PO QDAY #30 tablet 11/25/16 04/02/20 Unknown Rx metFORMIN [Glucophage] 1,000 mg PO BID #60 tablet 11/25/16 04/03/20 Unknown Rx Active Meds: Active Medications Acetaminophen (Acetaminophen 325 Mg Tab) 650 mg PO Q4H PRN PRN Reason: Pain MILD(1-3)/Fever >100.5/PRINCE Last Admin: 04/03/20 08:53 Dose: 650 mg Documented by: Amlodipine Besylate (Amlodipine 5 Mg Tab) 5 mg PO DAILY [facility] Last Admin: 04/03/20 12:18 Dose: 5 mg Documented by: Dexamethasone (Dexamethasone 4 Mg/Ml Vial) 6 mg IV Q24HR [facility] Stop: 04/12/20 10:01 Last Admin: 04/03/20 10:20 Dose: 6 mg Documented by: Dextrose (Dextrose 50% In Water (25gm) 50 Ml Syringe) 50 ml IV Q30MIN PRN; Protocol PRN Reason: Hypoglycemia Ferrous Sulfate (Ferrous Sulfate 325 Mg Tab) 325 mg PO QDAY [facility] Last Admin: 04/03/20 12:18 Dose: 325 mg Documented by: Hydralazine HCl (Hydralazine 20 Mg/1 Ml Inj) 10 mg IV Q4HR PRN PRN Reason: Hypertension REMDESIVIR 100 mg/ Sodium (Chloride) 250 mls @ 500 mls/hr IV Q24HR@2100 [facility] Stop: 04/07/20 21:29 Insulin Human Isoph/Insulin Regular (Insulin Nph/Regular 70/30 Inj) 30 unit SUB-Q BIDDIAB [facility] Last Admin: 04/03/20 17:56 Dose: 30 unit Documented by: Insulin Human Lispro (Insulin Lispro 100 Unit/Ml Vial 3 Ml) 0 unit SUB-Q ACHS [facility]; Protocol Last Admin: 04/03/20 22:08 Dose: 12 unit Documented by: Lisinopril (Lisinopril 40 Mg Tab) 40 mg PO QDAY [facility] Last Admin: 04/03/20 12:19 Dose: 40 mg Documented by: Magnesium Hydroxide (Magnesium Hydroxide (Mom) Oral Liqd Udc) 30 ml PO Q4H PRN PRN Reason: Constipation Metoprolol Tartrate (Metoprolol Tartrate 50 Mg Tab) 50 mg PO TID [facility] Last Admin: 04/03/20 21:55 Dose: 50 mg Documented by: Multivitamins/Minerals (Multivitamins,Ther W-Minerals Tab) 1 each PO QDAY [facility] Last Admin: 04/03/20 12:18 Dose: 1 each Documented by: Ondansetron HCl (Ondansetron 4 Mg/2 Ml Inj) 4 mg IV Q8H PRN PRN Reason: Nausea And Vomiting Sodium Chloride (Sodium Chloride 0.9% 10 Ml Flush Syringe) 10 ml IV BID [facility] Last Admin: 04/03/20 21:56 Dose: 10 ml Documented by: Sodium Chloride (Sodium Chloride 0.9% 10 Ml Flush Syringe) 10 ml IV PRN PRN PRN Reason: LINE FLUSH Sodium Chloride (Sodium Chloride 0.9% 50 Ml Ivpb) 50 ml IV Q24HR@2100 [facility] Stop: 04/07/20 21:01 Last Admin: 04/03/20 10:44 Dose: 50 ml Documented by: Physical Examination Vital signs: Vital Signs Temp Pulse Resp BP Pulse Ox 97.8 F 106 H 20 95/60 93 04/01/20 16:51 04/01/20 16:51 04/01/20 16:51 04/01/20 16:51 04/01/20 16:51 Deferred to preserve PPE During the global pandemic of COVID 19 Results - Laboratory Findings CBC and BMP: 04/02/20 05:24 04/02/20 05:24 PT/INR, D-dimer PT 13.6 Sec. (12.2-14.9) 04/02/20 05:24 INR 1.06 (0.87-1.13) 04/02/20 05:24 D-Dimer 606.97 ng/mlDDU (0-234) H 04/03/20 10:26 Abnormal lab findings: Abnormal Labs 04/01/20 04/01/20 04/01/20 16:59 16:59 23:49 MCH 25 L RDW 17.7 H [place] % (Auto) 12.7 H D-Dimer 589.19 H Sodium 135 L Carbon Dioxide BUN 19 H Creatinine 1.4 H Glucose 115 H POC Glucose Lactate Dehydrogenase C-Reactive Protein Coronavirus (PCR) 04/01/20 04/02/20 04/02/20 23:49 05:24 05:24 MCH 25 L RDW 17.8 H [place] % (Auto) 12.6 H D-Dimer Sodium 135 L Carbon Dioxide 19 L D BUN 25 H Creatinine 1.4 H Glucose 191 H 189 H POC Glucose Lactate Dehydrogenase 225 H C-Reactive Protein 4.60 H Coronavirus (PCR) 04/02/20 04/02/20 04/02/20 07:25 11:43 16:58 MCH RDW [place] % (Auto) D-Dimer Sodium Carbon Dioxide BUN Creatinine Glucose POC Glucose 191 H 287 H 267 H Lactate Dehydrogenase C-Reactive Protein Coronavirus (PCR) 04/02/20 04/02/20 04/03/20 23:23 Unknown 08:33 MCH RDW [place] % (Auto) D-Dimer Sodium Carbon Dioxide BUN Creatinine Glucose POC Glucose 291 H 283 H Lactate Dehydrogenase C-Reactive Protein Coronavirus (PCR) Positive A 04/03/20 04/03/20 04/03/20 10:26 10:26 11:26 MCH RDW [place] % (Auto) D-Dimer 606.97 H Sodium Carbon Dioxide BUN Creatinine Glucose POC Glucose 317 H Lactate Dehydrogenase 256 H C-Reactive Protein 4.90 H Coronavirus (PCR) 04/03/20 04/03/20 04/04/20 16:55 21:56 08:09 MCH RDW [place] % (Auto) D-Dimer Sodium Carbon Dioxide BUN Creatinine Glucose POC Glucose 412 H 459 H 339 H Lactate Dehydrogenase C-Reactive Protein Coronavirus (PCR) - Diagnostic Findings Chest x-ray: image reviewed (cardiomegaly otherwise clear lung marroquin) Assessment and Plan 64 y/o obese female admitted with acute respiratory failure secondary to SARS-COV-2 1. Prone as much as possible during the day and sleep prone at night 2. stopped IVFs 3. May need diuretic therapy but BP is very well controlled now 4. Wean FiO2 for sats >88% 5. Dex 6 daily for ten days. Guarded prognosis.
[2020-04-04] MEDS: FERROUS SULFATE 325 MG TAB PO SCH (10:40)
[2020-04-04] MEDS: MULTIVITAMINS,THER W-MINERALS TAB PO SCH (10:40)
[2020-04-04] MEDS: LISINOPRIL 40 MG TAB PO SCH (10:40)
[2020-04-04] MEDS: amLODIPine 5 MG TAB PO SCH (10:40)
[2020-04-04] MEDS: dexAMETHasone 4 MG/ML VIAL IV SCH (10:41)
[2020-04-04] MEDS: INSULIN LISPRO 100 UNIT/ML VIAL 3 mL SUB-Q SCH ×4 (10:41→22:54)
[2020-04-04] MEDS: METOPROLOL TARTRATE 50 MG TAB PO SCH ×3 (10:41→22:13)
[2020-04-04] MEDS: INSULIN NPH/REGULAR 70/30 INJ SUB-Q SCH ×2 (10:42→17:29)
[2020-04-04 11:11] LABS: Alanine Aminotransferase 48 units/L (7-56); Albumin 3.7 g/dL (3.9-5); BUN/Creatinine Ratio 24; Blood Urea Nitrogen 24 mg/dL (7-17); Calcium 8.9 mg/dL (8.4-10.2); Hemolysis Index 14
[2020-04-04 11:43] LABS: Bilirubin,Direct < 0.2 mg/dL (0-0.2)
[2020-04-04] MEDS ORDERED: SODIUM POLYSTYRENE 15 GM/60 ML ORAL LIQD PO NR (12:30)
[2020-04-04] MEDS: FLUTICASONE PROPIONATE NASAL SPRAY 16 GM NS SCH (13:09)
[2020-04-04] MEDS: ASCORBIC ACID 500 MG TAB PO SCH ×2 (13:10→22:14)
[2020-04-04] MEDS: ZINC SULFATE 220 MG CAP PO SCH (13:10)
[2020-04-04] MEDS: CHOLECALCIFEROL (VIT D3) 5,000 UNIT TAB PO SCH (13:10)
[2020-04-04] MEDS: ENOXAPARIN 150 MG/1 ML INJ SUB-Q SCH ×2 (13:11→22:50)
--- NOTE | 2020-04-04 17:01 | Progress Note ---
Assessment and Plan Cultures: Covid positive Blood cultures no growth today A/P: 54-year-old female past medical history diabetes, morbid obesity, hypertension admitted with [id number] symptoms #Severe COVID-19 pneumonia: Inflammatory markers elevated. Ddimer up. ferritin normal. #Acute hypoxic respiratory failure: O2 sat dropped to 80s, now on 5L nasal cannula. #Diabetes: very uncontrolled, tight glycemic control for best outcomes. #Morbid obesity: Associated worse COVID-19 outcomes Recs: -Continue remdesivir for 5 days -CrCL >30 D2 of 5 -Continue dexamethasone total 10 day -Prone positioning as possible -Anticoagulation per protocol -Supportive care -Pulmonary on board Aure Martin MD [facility] ([facility]) Office [phone] Subjective Date of service: 04/04/20 Principal diagnosis: COVID-19 Interval history: Patient is now on 5 L nasal cannula, no fever, no desaturations overnight. Tachycardia on monitor. Objective - Exam Narrative Exam: Physical Exam: reviewed ED and hospitalist notes. Deferred to prevent COVID-19 transmission. - Constitutional Vitals: Vital Signs Temp Pulse Resp BP Pulse Ox 98.4 F 94 H 24 118/55 96 04/04/20 12:19 04/04/20 12:19 04/04/20 12:19 04/04/20 12:19 04/04/20 12:19 Temperature -Last 24 Hours Temperature 98.4 F Temperature 98.0 F Temperature 98.5 F - Labs CBC & Chem 7: 04/02/20 05:24 04/04/20 10:22 Labs: Abnormal lab results 04/03/20 04/04/20 04/04/20 Range/Units 21:56 08:09 10:22 Sodium 131 L (137-145) mmol/L Potassium 5.1 H D (3.6-5.0) mmol/L Chloride 97.5 L (98-107) mmol/L BUN 24 H (7-17) mg/dL Glucose 572 H* (65-100) mg/dL POC Glucose 459 H 339 H (70-105) mg/dL Albumin 3.7 L (3.9-5) g/dL 04/04/20 04/04/20 Range/Units 12:17 16:52 Sodium (137-145) mmol/L Potassium (3.6-5.0) mmol/L Chloride (98-107) mmol/L BUN (7-17) mg/dL Glucose (65-100) mg/dL POC Glucose 494 H 464 H (70-105) mg/dL Albumin (3.9-5) g/dL
[2020-04-04] MEDS: oxyCODONE /ACETAMINOPHEN 5-325MG TAB PO PRN ×2 (17:29→22:50)
[2020-04-04] MEDS: REMDESIVIR 100 MG in SODIUM CHLORIDE 0.9% 250ML 250 ML IV SCH (22:13)
[2020-04-04] MEDS: SODIUM CHLORIDE 0.9% 50 ML IVPB IV SCH (22:13)
[2020-04-04] MEDS ORDERED: guaiFENesin 100 MG/5 ML ORAL LIQD PO PRN (22:29)
[2020-04-04] MEDS: HYDROcodone/HOMATROPINE 5-1.5MG /5 ML ORAL LIQD UNIT DOSE PO PRN (22:50)
[2020-04-05 06:15] LABS: Hematocrit 34.2 % (30.3-42.9); Hemoglobin 10.6 gm/dl (10.1-14.3); Mean Corpuscular HGB Conc 31 % (30-34); Mean Corpuscular Volume 80 fl (79-97); Platelet Count 193 K/mm3 (140-440); Red Blood Count 4.28 M/mm3 (3.65-5.03); Red Cell Distribution Width 17.7 % (13.2-15.2)
[2020-04-05 06:40] LABS: BUN/Creatinine Ratio 28; Blood Urea Nitrogen 28 mg/dL (7-17); Calcium 8.9 mg/dL (8.4-10.2); Hemolysis Index 36
[2020-04-05] MEDS: INSULIN NPH/REGULAR 70/30 INJ SUB-Q SCH ×2 (09:39→17:53)
[2020-04-05] MEDS: INSULIN LISPRO 100 UNIT/ML VIAL 3 mL SUB-Q SCH ×4 (09:39→21:56)
[2020-04-05] MEDS ORDERED: FUROSEMIDE 40 MG/4 ML INJ IV NR (10:41)
--- NOTE | 2020-04-05 10:44 | Progress Note ---
Assessment and Plan 64 y/o obese female admitted with acute respiratory failure secondary to SARS-COV-2 1. Prone as much as possible during the day and sleep prone at night 2. stopped IVFs 3. Gave lasix therapy today 40mg IV x1. 4. Wean FiO2 for sats >88% 5. Dex 6 daily for ten days. Guarded prognosis. Subjective Date of service: 04/05/20 Principal diagnosis: COVID-19 Interval history: No acute events. Still documented as 5 liters with sats in the low 90's. Objective CBC and BMP: 04/05/20 05:51 04/05/20 05:51 ABG, PT/INR, D-dimer: PT/INR, D-dimer PT 13.6 Sec. (12.2-14.9) 04/02/20 05:24 INR 1.06 (0.87-1.13) 04/02/20 05:24 D-Dimer 606.97 ng/mlDDU (0-234) H 04/03/20 10:26 Abnormal lab findings: Abnormal Labs 04/01/20 04/01/20 04/01/20 16:59 16:59 23:49 WBC MCH 25 L RDW 17.7 H [place] % (Auto) 12.7 H D-Dimer 589.19 H Sodium 135 L Potassium Chloride Carbon Dioxide BUN 19 H Creatinine 1.4 H Glucose 115 H POC Glucose Lactate Dehydrogenase C-Reactive Protein Albumin Coronavirus (PCR) 04/01/20 04/02/20 04/02/20 23:49 05:24 05:24 WBC MCH 25 L RDW 17.8 H [place] % (Auto) 12.6 H D-Dimer Sodium 135 L Potassium Chloride Carbon Dioxide 19 L D BUN 25 H Creatinine 1.4 H Glucose 191 H 189 H POC Glucose Lactate Dehydrogenase 225 H C-Reactive Protein 4.60 H Albumin Coronavirus (PCR) 04/02/20 04/02/20 04/02/20 07:25 11:43 16:58 WBC MCH RDW [place] % (Auto) D-Dimer Sodium Potassium Chloride Carbon Dioxide BUN Creatinine Glucose POC Glucose 191 H 287 H 267 H Lactate Dehydrogenase C-Reactive Protein Albumin Coronavirus (PCR) 04/02/20 04/02/20 04/03/20 23:23 Unknown 08:33 WBC MCH RDW [place] % (Auto) D-Dimer Sodium Potassium Chloride Carbon Dioxide BUN Creatinine Glucose POC Glucose 291 H 283 H Lactate Dehydrogenase C-Reactive Protein Albumin Coronavirus (PCR) Positive A 04/03/20 04/03/20 04/03/20 10:26 10:26 11:26 WBC MCH RDW [place] % (Auto) D-Dimer 606.97 H Sodium Potassium Chloride Carbon Dioxide BUN Creatinine Glucose POC Glucose 317 H Lactate Dehydrogenase 256 H C-Reactive Protein 4.90 H Albumin Coronavirus (PCR) 04/03/20 04/03/20 04/04/20 16:55 21:56 08:09 WBC MCH RDW [place] % (Auto) D-Dimer Sodium Potassium Chloride Carbon Dioxide BUN Creatinine Glucose POC Glucose 412 H 459 H 339 H Lactate Dehydrogenase C-Reactive Protein Albumin Coronavirus (PCR) 04/04/20 04/04/20 04/04/20 10:22 12:17 16:52 WBC MCH RDW [place] % (Auto) D-Dimer Sodium 131 L Potassium 5.1 H D Chloride 97.5 L Carbon Dioxide BUN 24 H Creatinine Glucose 572 H* POC Glucose 494 H 464 H Lactate Dehydrogenase C-Reactive Protein Albumin 3.7 L Coronavirus (PCR) 04/04/20 04/04/20 04/05/20 19:35 22:09 05:51 WBC 4.2 L MCH 25 L RDW 17.7 H [place] % (Auto) D-Dimer Sodium Potassium Chloride Carbon Dioxide BUN Creatinine Glucose 441 H POC Glucose 328 H Lactate Dehydrogenase C-Reactive Protein Albumin Coronavirus (PCR) 04/05/20 04/05/20 05:51 07:32 WBC MCH RDW [place] % (Auto) D-Dimer Sodium 136 L Potassium Chloride Carbon Dioxide BUN 28 H Creatinine Glucose 307 H POC Glucose 272 H Lactate Dehydrogenase C-Reactive Protein Albumin Coronavirus (PCR)
[2020-04-05] MEDS: FLUTICASONE PROPIONATE NASAL SPRAY 16 GM NS SCH (11:30)
[2020-04-05] MEDS: FERROUS SULFATE 325 MG TAB PO SCH (11:43)
[2020-04-05] MEDS: DEXAMETHASONE 4 MG TAB PO SCH (11:44)
[2020-04-05] MEDS: CHOLECALCIFEROL (VIT D3) 5,000 UNIT TAB PO SCH (11:44)
[2020-04-05] MEDS: ZINC SULFATE 220 MG CAP PO SCH (11:45)
[2020-04-05] MEDS: MULTIVITAMINS,THER W-MINERALS TAB PO SCH (11:45)
[2020-04-05] MEDS: ASCORBIC ACID 500 MG TAB PO SCH ×2 (11:45→21:54)
[2020-04-05] MEDS: amLODIPine 5 MG TAB PO SCH (11:45)
[2020-04-05] MEDS: METOPROLOL TARTRATE 50 MG TAB PO SCH ×3 (11:46→21:54)
[2020-04-05] MEDS: LISINOPRIL 40 MG TAB PO SCH (11:47)
[2020-04-05] MEDS: ENOXAPARIN 150 MG/1 ML INJ SUB-Q SCH ×2 (11:50→21:55)
--- NOTE | 2020-04-05 12:46 | Progress Note ---
Assessment and Plan Assessment and plan: 64 year old female seen in the Emergency room complaining cough and shortness of breath. Cough has been productive of some sputum. She has been having generalized malaise. This has been ongoing for a few weeks. She denies any fever or chills, chest pain, no headache or dizziness, no nausea or vomiting, no abdominal pain,no dysuria, no hematuria. Patient denies any sick contacts, no no recent travels, no contact with anyone with COVID-19. Work up in the emergency room today, labs and CXR were unremarkable. 04/02: Continue supportive care. Monitor Oxygen, ID input noted. Pronining Encouraged. 04/03: Continue management of COVID19 with ID recs, On Remdesivir and Decadrone, will resume home meds as this has not been started, This will help better control Blood pressure and Blood glucose. Plan of care discussed in detail. Pulmonary consulted. Prior hx of Congestive heart failure and requiring Intubation for the same about 5 years ago noted. Echo ordered. 04/04: Clinically stable. Continue supportive care. Will recommend outpatient Ortho and Case management to assist. Prone recommended. Adjust insulin. Continue remdesivir and decadrone, Pulm and ID noted. 04/05: Continue steroids, advised to ambulate with PT. Will obtain Home o2 eval and anticipate discharge in am if improving. Adjust insulin for better coverage and management. Acute Hypoxic Respiratory failure Diabetes Mellitus Severe COVID 19 HTN (hypertension) Hyperlipidemia Will monitor lipid profile. Morbid Obesity Weightloss recommended and discussed Chronic Osteoathritis Patient ambulating with clutches, Pain control DVT prophylaxis Current Visit: No Status: Acute Plan to address problem: Will place on anticoagulation with Lovenox. Full code status Current Visit: Yes Status: Acute Plan to address problem: Patient is full code. History Interval history: Patient seen and examined, this morning on my exam the patient was on room air. Room air oxygen check was 94% per documentation. She complains of cough with pain during cough. Hospitalist Physical - Physical exam Narrative exam: General appearance: Present: Mild respiratory distress, Sitting up, well- nourished - EENT Eyes: Present: PERRL, EOM intact. Absent: scleral icterus ENT: hearing intact, clear oral mucosa, dentition normal - Neck Neck: Present: supple, normal ROM - Respiratory Respiratory effort: normal Respiratory: bilateral: diminished - Cardiovascular Rhythm: regular Heart Sounds: Present: S1 & S2. Absent: gallop, systolic murmur, diastolic murmur, rub - Extremities Extremities: no ischemia, pulses intact, pulses symmetrical, No edema, normal temperature, normal color, Full ROM Peripheral Pulses: within normal limits - Abdominal General gastrointestinal: Present: soft, non-tender, non-distended, normal bowel sounds. Absent: mass - Integumentary Integumentary: Present: clear, warm, dry. Absent: rash - Musculoskeletal Musculoskeletal: strength equal bilaterally - Psychiatric Psychiatric: appropriate mood/affect, intact judgment & insight, memory intact, cooperative - Neurologic Neurologic: CNII-XII intact, no focal deficits, moves all extremities - Constitutional Vitals: Temp Pulse Resp BP Pulse Ox 98.3 F 96 H 24 123/65 94 04/05/20 11:13 04/05/20 11:47 04/05/20 11:13 04/05/20 11:47 04/05/20 11:13 General appearance: Present: no acute distress, well-nourished HEART Score - HEART Score Troponin: Troponin T < 0.010 ng/mL (0.00-0.029) 04/01/20 16:59 Results - Labs CBC & Chem 7: 04/05/20 05:51 04/05/20 05:51 Labs: Laboratory Last Values WBC 4.2 K/mm3 (4.5-11.0) L 04/05/20 05:51 RBC 4.28 M/mm3 (3.65-5.03) 04/05/20 05:51 Hgb 10.6 gm/dl (10.1-14.3) 04/05/20 05:51 Hct 34.2 % (30.3-42.9) 04/05/20 05:51 MCV 80 fl (79-97) 04/05/20 05:51 MCH 25 pg (28-32) L 04/05/20 05:51 MCHC 31 % (30-34) 04/05/20 05:51 RDW 17.7 % (13.2-15.2) H 04/05/20 05:51 Plt Count 193 K/mm3 (140-440) 04/05/20 05:51 Lymph % (Auto) 25.1 % (13.4-35.0) 04/02/20 05:24 [place] % (Auto) 12.6 % (0.0-7.3) H 04/02/20 05:24 Eos % (Auto) 0.1 % (0.0-4.3) 04/02/20 05:24 Baso % (Auto) 0.5 % (0.0-1.8) 04/02/20 05:24 Lymph # (Auto) 1.4 K/mm3 (1.2-5.4) 04/02/20 05:24 [place] # (Auto) 0.7 K/mm3 (0.0-0.8) 04/02/20 05:24 Eos # (Auto) 0.0 K/mm3 (0.0-0.4) 04/02/20 05:24 Baso # (Auto) 0.0 K/mm3 (0.0-0.1) 04/02/20 05:24 Seg Neutrophils % 61.7 % (40.0-70.0) 04/02/20 05:24 Seg Neutrophils # 3.4 K/mm3 (1.8-7.7) 04/02/20 05:24 PT 13.6 Sec. (12.2-14.9) 04/02/20 05:24 INR 1.06 (0.87-1.13) 04/02/20 05:24 D-Dimer 606.97 ng/mlDDU (0-234) H 04/03/20 10:26 Sodium 136 mmol/L (137-145) L 04/05/20 05:51 Potassium 4.7 mmol/L (3.6-5.0) 04/05/20 05:51 Chloride 101.8 mmol/L (98-107) 04/05/20 05:51 Carbon Dioxide 25 mmol/L (22-30) 04/05/20 05:51 Anion Gap 14 mmol/L 04/05/20 05:51 BUN 28 mg/dL (7-17) H 04/05/20 05:51 Creatinine 1.0 mg/dL (0.6-1.2) 04/05/20 05:51 Estimated GFR > 60 ml/min 04/05/20 05:51 BUN/Creatinine Ratio 28 % 04/05/20 05:51 Glucose 307 mg/dL (65-100) H 04/05/20 05:51 POC Glucose 355 mg/dL (70-105) H 04/05/20 11:11 Lactic Acid 1.60 mmol/L (0.7-2.0) 04/01/20 23:49 Calcium 8.9 mg/dL (8.4-10.2) 04/05/20 05:51 Ferritin 52.0 ng/mL (10.0-200.0) 04/03/20 10:26 Total Bilirubin 0.30 mg/dL (0.1-1.2) 04/04/20 10:22 Direct Bilirubin < 0.2 mg/dL (0-0.2) 04/04/20 10:22 Indirect Bilirubin 0.1 mg/dL 04/04/20 10:22 AST 35 units/L (5-40) 04/04/20 10:22 ALT 48 units/L (7-56) 04/04/20 10:22 Alkaline Phosphatase 82 units/L (35-129) 04/04/20 10:22 Lactate Dehydrogenase 256 units/L (91-180) H 04/03/20 10:26 Troponin T < 0.010 ng/mL (0.00-0.029) 04/01/20 16:59 C-Reactive Protein 4.90 mg/dL (0.00-1.30) H 04/03/20 10:26 NT-Pro-B Natriuret Pep 34.07 pg/mL (0-900) 04/03/20 10:26 Total Protein 7.5 g/dL (6.3-8.2) 04/04/20 10:22 Albumin 3.7 g/dL (3.9-5) L 04/04/20 10:22 Albumin/Globulin Ratio 1.0 % 04/04/20 10:22 Procalcitonin 0.08 ng/mL (<0.15) 04/01/20 23:49 Coronavirus (PCR) Positive (Negative) A 04/02/20 Unknown Influenza A (Rapid) Negative (Negative) 04/03/20 18:30 Influenza B (Rapid) Negative (Negative) 04/03/20 18:30 Microbiology: Microbiology 04/01/20 23:49 Peripheral/Venous Blood Culture - Preliminary NO GROWTH AFTER 72 HOURS 04/01/20 23:39 Peripheral/Venous Blood Culture - Preliminary NO GROWTH AFTER 72 HOURS [place]/IV: Voiding Method Bedside Commode IV Catheter Type [Right Hand] INT / Saline Lock Active Medications - Current Medications Current Medications: Generic Name Dose Route Start Last Admin Trade Name Freq PRN Reason Stop Dose Admin Acetaminophen 650 mg 04/01/20 22:32 04/03/20 08:53 Acetaminophen 325 Mg Tab PO 650 mg Q4H PRN Administration Pain MILD(1-3)/Fever >100.5/PRINCE Amlodipine Besylate 5 mg 04/03/20 12:00 04/05/20 11:45 Amlodipine 5 Mg Tab PO 5 mg DAILY SAEED Administration Ascorbic Acid 1,000 mg 04/04/20 10:00 04/05/20 11:45 Ascorbic Acid 500 Mg Tab PO 1,000 mg BID SAEED Administration Cholecalciferol 5,000 unit 04/04/20 10:00 04/05/20 11:44 Cholecalciferol (Vit D3) 5,000 Unit Tab PO 5,000 unit DAILY SAEED Administration Dexamethasone 6 mg 04/05/20 10:00 04/05/20 11:44 Dexamethasone 4 Mg Tab PO 04/12/20 12:00 6 mg DAILY SAEED Administration Dextrose 50 ml 04/01/20 22:32 Dextrose 50% In Water (25gm) 50 Ml Syringe IV Q30MIN PRN Hypoglycemia Protocol Enoxaparin Sodium 140 mg 04/04/20 10:30 04/05/20 11:50 Enoxaparin 150 Mg/1 Ml Inj SUB-Q 140 mg Q12HR SAEED Administration Ferrous Sulfate 325 mg 04/03/20 12:00 04/05/20 11:43 Ferrous Sulfate 325 Mg Tab PO 325 mg QDAY SAEED Administration Fluticasone Propionate 100 mcg 04/04/20 14:00 04/04/20 13:09 Fluticasone Propionate Nasal Justice 16 Gm NS 100 mcg QDAY SAEED Administration Guaifenesin 100 mg 04/04/20 22:29 Guaifenesin 100 Mg/5 Ml Oral Liqd PO Q4H PRN Cough Hydralazine HCl 10 mg 04/03/20 11:42 Hydralazine 20 Mg/1 Ml Inj IV Q4HR PRN Hypertension Hydrocodone Bit/Homatropine Methylb 10 ml 04/04/20 11:58 04/04/20 22:50 Hydrocodone/Homatropine 5-1.5mg /5 Ml Oral Liqd Unit Dose PO 10 ml Q6H PRN Administration Cough REMDESIVIR 100 mg/ Sodium 250 mls @ 500 mls/hr 04/04/20 21:00 04/04/20 22:57 Chloride IV 04/07/20 21:29 Infused Q24HR@2100 SAEED Infusion Insulin Human Isoph/Insulin Regular 45 unit 04/04/20 17:00 04/05/20 09:39 Insulin Nph/Regular 70/30 Inj SUB-Q 45 unit BIDDIAB SAEED Administration Insulin Human Lispro 0 unit 04/02/20 07:30 04/05/20 12:04 Insulin Lispro 100 Unit/Ml Vial 3 Ml SUB-Q 10 unit ACHS SAEED Administration Protocol Lisinopril 40 mg 04/03/20 12:00 04/05/20 11:47 Lisinopril 40 Mg Tab PO 40 mg QDAY SAEED Administration Magnesium Hydroxide 30 ml 04/01/20 22:32 Magnesium Hydroxide (Mom) Oral Liqd Udc PO Q4H PRN Constipation Metoprolol Tartrate 50 mg 04/03/20 14:00 04/05/20 11:46 Metoprolol Tartrate 50 Mg Tab PO 50 mg TID SAEED Administration Multivitamins/Minerals 1 each 04/03/20 12:00 04/05/20 11:45 Multivitamins,Ther W-Minerals Tab PO 1 each QDAY SAEED Administration Ondansetron HCl 4 mg 04/01/20 22:32 Ondansetron 4 Mg/2 Ml Inj IV Q8H PRN Nausea And Vomiting Oxycodone/Acetaminophen 1 tab 04/04/20 11:58 04/04/20 22:50 Oxycodone /Acetaminophen 5-325mg Tab PO 1 tab Q6H PRN Administration Pain, Moderate (4-6) Sodium Chloride 10 ml 04/02/20 10:00 04/05/20 12:04 Sodium Chloride 0.9% 10 Ml Flush Syringe IV 10 ml BID SEAED Administration Sodium Chloride 10 ml 04/01/20 22:32 Sodium Chloride 0.9% 10 Ml Flush Syringe IV PRN PRN LINE FLUSH Sodium Chloride 50 ml 04/03/20 11:30 04/04/20 22:13 Sodium Chloride 0.9% 50 Ml Ivpb IV 04/07/20 21:01 50 ml Q24HR@2100 SAEED Administration Zinc Sulfate 220 mg 04/04/20 10:00 04/05/20 11:45 Zinc Sulfate 220 Mg Cap PO 220 mg QDAY SAEED Administration Nutrition/Malnutrition Assess - Dietary Evaluation Nutrition/Malnutrition Findings: Nutrition Notes Start: 04/02/20 14:21 Freq: Status: Active Protocol: Document 04/02/20 14:21 [facility] (Rec: 04/02/20 14:23 [facility] [id number]) Nutrition Notes Need for Assessment generated from: MD Order,Education Initial or Follow up Brief Note Current Diet Cardiac/Consistent CHO Subjective/Other Information RD consulted for diet education. Pt in ED at this time. Minimum of two criteria No Nutrition Intervention Follow-Up By: 04/06/20 Additional Comments F/U: diet education needs
--- NOTE | 2020-04-05 15:55 | Progress Note ---
Assessment and Plan Cultures: Covid positive Blood cultures no growth today A/P: 54-year-old female past medical history diabetes, morbid obesity, hypertension admitted with [id number] symptoms #Severe COVID-19 pneumonia: Inflammatory markers elevated. Ddimer up. ferritin normal. #Acute hypoxic respiratory failure: O2 sat dropped to 80s, 5L nasal cannula. #Diabetes: very uncontrolled, tight glycemic control for best outcomes. #Morbid obesity: Associated worse COVID-19 outcomes Recs: -Continue remdesivir for 5 days -CrCL >30 D3 of 5 -Continue dexamethasone total 10 day -Prone positioning as possible -Anticoagulation per protocol -Supportive care -Pulmonary on board Prosper Wright MD [facility] ([facility] O: [phone] F: [phone] Subjective Date of service: 04/05/20 Principal diagnosis: COVID-19 Interval history: Afebrile, white count 4.2. Cultures remain negative. Objective - Exam Narrative Exam: Physical exam deferred due to PPE conservation strategy. Please refer to primary team's note. - Constitutional Vitals: Vital Signs Temp Pulse Resp BP Pulse Ox 98.3 F 96 H 24 123/65 94 04/05/20 11:13 04/05/20 11:47 04/05/20 11:13 04/05/20 11:47 04/05/20 11:13 Temperature -Last 24 Hours Temperature 98.3 F Temperature 97.7 F Temperature 98.1 F Temperature 98.5 F - Labs CBC & Chem 7: 04/05/20 05:51 04/05/20 05:51 Labs: Abnormal lab results 04/04/20 04/04/20 04/04/20 Range/Units 16:52 19:35 22:09 WBC (4.5-11.0) K/mm3 MCH (28-32) pg RDW (13.2-15.2) % Sodium (137-145) mmol/L BUN (7-17) mg/dL Glucose 441 H (65-100) mg/dL POC Glucose 464 H 328 H (70-105) mg/dL 04/05/20 04/05/20 04/05/20 Range/Units 05:51 05:51 07:32 WBC 4.2 L (4.5-11.0) K/mm3 MCH 25 L (28-32) pg RDW 17.7 H (13.2-15.2) % Sodium 136 L (137-145) mmol/L BUN 28 H (7-17) mg/dL Glucose 307 H (65-100) mg/dL POC Glucose 272 H (70-105) mg/dL 04/05/20 Range/Units 11:11 WBC (4.5-11.0) K/mm3 MCH (28-32) pg RDW (13.2-15.2) % Sodium (137-145) mmol/L BUN (7-17) mg/dL Glucose (65-100) mg/dL POC Glucose 355 H (70-105) mg/dL
[2020-04-05] MEDS: SODIUM CHLORIDE 0.9% 50 ML IVPB IV SCH (21:54)
[2020-04-05] MEDS: REMDESIVIR 100 MG in SODIUM CHLORIDE 0.9% 250ML 250 ML IV SCH (21:55)
[2020-04-05] MEDS: oxyCODONE /ACETAMINOPHEN 5-325MG TAB PO PRN (23:54)
[2020-04-05] MEDS: HYDROcodone/HOMATROPINE 5-1.5MG /5 ML ORAL LIQD UNIT DOSE PO PRN (23:54)
[2020-04-06 06:42] LABS: Alanine Aminotransferase 56 units/L (7-56); Albumin 3.8 g/dL (3.9-5)
[2020-04-06 06:53] LABS: Bilirubin,Direct < 0.2 mg/dL (0-0.2)
[2020-04-06] MEDS: ASCORBIC ACID 500 MG TAB PO SCH (09:57)
[2020-04-06] MEDS: MULTIVITAMINS,THER W-MINERALS TAB PO SCH (09:57)
[2020-04-06] MEDS: FERROUS SULFATE 325 MG TAB PO SCH (09:57)
[2020-04-06] MEDS: ZINC SULFATE 220 MG CAP PO SCH (09:57)
[2020-04-06] MEDS: DEXAMETHASONE 4 MG TAB PO SCH (09:58)
[2020-04-06] MEDS: CHOLECALCIFEROL (VIT D3) 5,000 UNIT TAB PO SCH (09:58)
[2020-04-06] MEDS: ENOXAPARIN 150 MG/1 ML INJ SUB-Q SCH (09:59)
[2020-04-06] MEDS: METOPROLOL TARTRATE 50 MG TAB PO SCH (10:25)
[2020-04-06 10:26] VITALS: BP 112/74
[2020-04-06] MEDS: amLODIPine 5 MG TAB PO SCH (10:26)
[2020-04-06] MEDS: FLUTICASONE PROPIONATE NASAL SPRAY 16 GM NS SCH (10:26)
[2020-04-06] MEDS: INSULIN LISPRO 100 UNIT/ML VIAL 3 mL SUB-Q SCH (10:31)
[2020-04-06] MEDS: INSULIN NPH/REGULAR 70/30 INJ SUB-Q SCH (10:33)
[2020-04-06] MEDS: LISINOPRIL 40 MG TAB PO SCH (10:35)
--- NOTE | 2020-04-06 11:09 | Discharge Summary ---
Providers - Providers Date of Admission: 04/01/20 22:07 Attending physician: SUZETTE MURPHY MD 04/01/20 22:32 Consult to Dietitian/Nutrition [CONS] Routine Physician Instructions: Reason For Exam: Reason for Consult: Diet education Consult to Physician [CONS] Routine Comment: Consulting Provider: LAUREEN GABRIEL Physician Instructions: Reason For Exam: Dyspnea, hypoxia 04/03/20 07:46 Consult to Physician [CONS] Routine Comment: Consulting Provider: ORVILLE BOLAÑOS Physician Instructions: Reason For Exam: Acute respiratory failure-Covid 19 04/04/20 11:59 Consult to Case Management [CONS] Routine Services Needed at Discharge: Entry Level Staff Accountant Notified:: NO Additional Physician Instructions: ANY HELP WITH INSURANCE Primary care physician: OPERATOR ENGINEER Hospitalization Condition: Stable Hospital course: 64 year old female seen in the Emergency room complaining cough and shortness of breath. Cough has been productive of some sputum. She has been having generalized malaise. This has been ongoing for a few weeks. She denies any fever or chills, chest pain, no headache or dizziness, no nausea or vomiting, no abdominal pain,no dysuria, no hematuria. Patient denies any sick contacts, no no recent travels, no contact with anyone with COVID-19. Work up in the emergency room today, labs and CXR were unremarkable. 04/02: Continue supportive care. Monitor Oxygen, ID input noted. Pronining Encouraged. 04/03: Continue management of COVID19 with ID recs, On Remdesivir and Decadrone, will resume home meds as this has not been started, This will help better control Blood pressure and Blood glucose. Plan of care discussed in detail. Pulmonary consulted. Prior hx of Congestive heart failure and requiring Intubation for the same about 5 years ago noted. Echo ordered. 04/04: Clinically stable. Continue supportive care. Will recommend outpatient Ortho and Case management to assist. Prone recommended. Adjust insulin. Continue remdesivir and decadrone, Pulm and ID noted. 04/05: Continue steroids, advised to ambulate with PT. Will obtain Home o2 eval and anticipate discharge in am if improving. Adjust insulin for better coverage and management. 04/06: Acute Hypoxic Respiratory failure Diabetes Mellitus Severe COVID 19 HTN (hypertension) Hyperlipidemia Will monitor lipid profile. Morbid Obesity Weightloss recommended and discussed Chronic Osteoathritis Patient ambulating with clutches, Pain control Disposition: [id number] HOME UNDER HOME [facility] Time spent for discharge: 35 mins Exam - Constitutional Vitals: Temp Pulse Resp BP Pulse Ox 97.7 F 102 H 20 112/74 94 04/06/20 04:14 04/06/20 10:25 04/06/20 04:14 04/06/20 10:26 04/06/20 04:14 Plan Activity: advance as tolerated, fall precautions Diet: low fat Special Instructions: record daily weights, record daily BP diary Follow up with: PRIMARY CARE, [Primary Care Provider] - 3-5 Days ORVILLE BOLAÑOS MD [Staff Physician] - 7 Days ANATOLIY BURTON MD [Staff Physician] - 7 Days Prescriptions: amLODIPine 5 mg PO DAILY #30 tab dexAMETHasone [Dexamethasone] 6 mg PO DAILY #5 tablet Apixaban [Eliquis] 2.5 mg PO BID #30 tablet Fluticasone [Flonase] 100 mcg NS QDAY #1 bottle HYDROcodone/HOMATROP 5-1.5 [HYDROcodone-Homatropin 5-1.5 mg per 5 ML] 10 ml PO Q6H PRN #10 udc PRN Reason: Cough Insulin Aspart Prot/Aspart(Nf) [NovoLOG Mix 70/30 VIAL] 30 units SUB-Q BIDDIAB #10 ml Ascorbic Acid [Vitamin C] 1,000 mg PO BID #60 tablet Cholecalciferol (Vitamin D3) [Vitamin D3] 5,000 unit PO DAILY #30 tablet lisinopriL [Zestril TAB] 40 mg PO QDAY #30 tablet Zinc Sulfate 220 mg PO QDAY #30 capsule
--- NOTE | 2020-04-06 15:52 | Progress Note ---
Assessment and Plan Cultures: Covid positive Blood cultures no growth today A/P: 54-year-old female past medical history diabetes, morbid obesity, hypertension admitted with [id number] symptoms #Severe COVID-19 pneumonia: Inflammatory markers elevated. Ddimer up. ferritin normal. #Acute hypoxic respiratory failure: O2 sat dropped to 80s, 5L nasal cannula. #Diabetes: very uncontrolled, tight glycemic control for best outcomes. #Morbid obesity: Associated worse COVID-19 outcomes Recs: -Continue remdesivir for 5 days -CrCL >30 D4 of 5 -Continue dexamethasone total 10 day -Prone positioning as possible -Anticoagulation per protocol -Supportive care -Pulmonary on board Prosper Wright MD [facility] O: [phone] F: [phone] Subjective Date of service: 04/06/20 Principal diagnosis: COVID-19 Interval history: Afebrile, no acute change. Objective - Exam Narrative Exam: Physical exam deferred due to PPE conservation strategy. Please refer to primary team's note. - Constitutional Vitals: Vital Signs Temp Pulse Resp BP Pulse Ox 97.7 F 102 H 20 112/74 94 04/06/20 04:14 04/06/20 10:25 04/06/20 04:14 04/06/20 10:26 04/06/20 04:14 Temperature -Last 24 Hours Temperature 97.7 F Temperature 97.6 F Temperature 98.7 F - Labs CBC & Chem 7: 04/05/20 05:51 04/05/20 05:51 Labs: Abnormal lab results 04/05/20 04/05/20 04/06/20 Range/Units 17:32 21:08 04:56 POC Glucose 392 H 427 H (70-105) mg/dL Albumin 3.8 L (3.9-5) g/dL 04/06/20 Range/Units 07:41 POC Glucose 297 H (70-105) mg/dL Albumin (3.9-5) g/dL
== END 2020-04-06 13:55 | disposition home health service (06) | DRG 177 ==
LOC: ED 16:46 → 3A 22:07
PROVIDERS: ADMIT Internal Medicine; ATTEND Internal Medicine
PROC: XW033E5 Introduction of Remdesivir Anti-infective into Peripheral Vein, Percutaneous Approach, New Technology Group 5 (ICD-10-PCS; principal; 2020-04-03)
DX: U07.1 COVID-19 (principal); J96.01 Acute respiratory failure with hypoxia; J12.82 Pneumonia due to coronavirus disease 2019; Z68.42 Body mass index [BMI] 45.0-49.9, adult; E66.01 Morbid (severe) obesity due to excess calories; I10 Essential (primary) hypertension; M19.90 Unspecified osteoarthritis, unspecified site; E11.9 Type 2 diabetes mellitus without complications; E78.5 Hyperlipidemia, unspecified; Z79.899 Other long term (current) drug therapy; Z87.891 Personal history of nicotine dependence; Z98.51 Tubal ligation status; Z79.84 Long term (current) use of oral hypoglycemic drugs
CPT/HCPCS: 36415; 71046; 80048; 80053; 80076; 82140; 82728; 82947; 82962; 83615; 83880; 84145; 84484; 85025; 85027; 85379; 85610; 86140; 87040; 87400; 93005; 96365; G0378; J0456; J0696; J1100; J1650; J1815; J1940; J7030; J7050; J8540; U0003